=== PATIENT | male | born 1975 | race Caucasian/White ===

== ENCOUNTER → 2019-10-03 12:24 | Outpatient (CLI) | payer BC, SELFPAY ==
--- NOTE | ~2019-10-03 | XR_ITS ---
EXAMINATION: XR knee LT 3V DATE: 10/03/2019 12:45 INDICATION: Left knee pain. Injury. TECHNIQUE: 3 views of left knee were obtained. COMPARISON: None. FINDINGS: Bone alignment is normal. No fracture. There is mild osteoarthritis of lateral and patellof emoral compartments. No knee joint effusion. IMPRESSION: 1. Mild left knee osteoarthritis. Reviewed, dictated and finalized at location A. S BREAKER
== END ==
PROVIDERS: PCP Physician Assistant; Visit Provider Physician Assistant
DX: M25.562 Pain in left knee (principal); M17.12 Unilateral primary osteoarthritis, left knee
CPT/HCPCS: 73562

== ENCOUNTER 2021-04-23 12:49 | Outpatient (CLI) | payer BC, OTHER, SELFPAY ==
--- NOTE | ~2021-04-23 | US_ITS ---
US scrotum doppler DATE: 04/23/2021 13:37 INDICATION: Right epididymitis TECHNIQUE: Real-time and color flow imaging and Doppler analysis of the scrotal contents COMPARISON: None FINDINGS: No testicular mass lesion or torsion is detected. There is asymmetric prominence and heterogeneous echo texture and increased vascularity of the right epididymis, consistent with clinical diagnosis of right epididymitis. Small left hydrocele. No varicoceles are demonstrated. IMPRESSION: Right epididymitis Reviewed, dictated and finalized at Location A. Reviewed, dictated and finalized at location A. IMPRESSION: Right epididymitis
== END 2021-04-23 12:50 | disposition home or self-care (01) ==
PROVIDERS: PCP Family Medicine; Visit Provider Nurse Practitioner Adult Health
DX: N45.1 Epididymitis (principal)
CPT/HCPCS: 76870; 93976

== ENCOUNTER → 2021-07-15 09:34 | Outpatient (CLI) | payer OTHER, SELFPAY ==
[2021-07-15 20:25] LABS: SARS-CoV-2 RNA PCR Positive
== END ==
PROVIDERS: PCP Family Medicine; Visit Provider Nurse Practitioner Family
DX: U07.1 COVID-19 (principal)
CPT/HCPCS: C9803; U0003; U0005

== ENCOUNTER → 2022-03-26 14:03 | Outpatient (CLI) | payer OTHER, SELFPAY ==
--- NOTE | ~2022-03-26 | US_ITS ---
EXAMINATION: US venous doppler LE RT DATE: 03/26/2022 14:40 INDICATION: Right lower limb swelling TECHNIQUE: Youngblood scale images without and with compression and Doppler images of the right lower extre mity veins were obtained. COMPARISON: None FINDINGS: The right common femoral vein, profunda femoral vein, femoral vein, popliteal vein, peronea l trunk, posterior tibial veins, and greater saphenous vein are patent. The calf veins are somewhat d ifficult to image. There is a 3.3 cm Kidd's cyst. IMPRESSION: 1. Patent right lower extremity veins. No evidence of deep venous thrombosis. Reviewed, dictated and finalized at location A.
== END ==
PROVIDERS: PCP Family Medicine
DX: I82.401 Acute embolism and thrombosis of unspecified deep veins of right lower extremity (principal)
CPT/HCPCS: 93971

== ENCOUNTER → 2022-05-19 15:19 | Outpatient (CLI) | payer OTHER, MEDICAID, SELFPAY ==
--- NOTE | ~2022-05-19 | US_ITS ---
EXAMINATION: US venous doppler LE RT DATE: 05/19/2022 15:46 INDICATION: Right lower limb swelling TECHNIQUE: Grayscale ultrasound images without and with compression and Doppler ultrasound images of the right lower extremity veins were obtained. COMPARISON: 03/26/2022 FINDINGS: Noncompressible deep venous necrosis in the distal right popliteal vein as well as within both of the paired right peroneal veins at the calf. The visualized portions of right common femoral vein, profu nda (deep) femoral vein, femoral vein, posterior tibial veins, gastrocnemius vein and greater sapheno us vein outflow are patent. 5.6 x 4.7 x 1.5 cm Kidd's cyst at the right popliteal fossa. IMPRESSION: 1. Right sided skkqg-uzm-hjwr deep venous thrombosis, new since study from 2 months prior in the dis jessika right popliteal vein and paired peroneal veins. Dr. Cox discussed these findings with Dr. Clara marrufo at 4:00 PM. 2. Moderate-sized Kidd cyst at the right popliteal fossa. Reviewed, dictated and finalized at location B. IMPRESSION: 1. Right sided alpxn-xrl-lfac deep venous thrombosis, new since study from 2 m onths prior in the distal right popliteal vein and paired peroneal veins. Dr. Adore cortez discussed these findings with Dr. Camejo at 4:00 PM. 2. Moderate-sized Kidd cyst at the right popliteal fossa.
== END ==
DX: I82.431 Acute embolism and thrombosis of right popliteal vein (principal); I82.451 Acute embolism and thrombosis of right peroneal vein; M71.21 Synovial cyst of popliteal space [Baker], right knee
CPT/HCPCS: 93971

== ENCOUNTER 2022-07-08 13:02 | Outpatient (CLI) | payer OTHER, MEDICAID, SELFPAY ==
--- NOTE | ~2022-07-08 | US_ITS ---
EXAMINATION:US venous doppler LE RT INDICATION:Follow-up deep venous thrombosis TECHNIQUE: Multiple grayscale, color flow and Doppler images of the right lower extremity deep venous systems were obtained and reviewed. COMPARISON:05/19/2022 FINDINGS: The common femoral, superficial femoral and popliteal veins demonstrate normal respiratory variation, augmentation and compressibility. Color flow is also seen within the posterior tibial, pe roneal, greater saphenous and profunda veins. IMPRESSION: 1: No lower extremity deep venous thrombosis. Reviewed, dictated and finalized at location A. NICS MANAGER
== END 2022-07-08 13:03 | disposition home or self-care (01) ==
PROVIDERS: PCP Family Medicine
DX: I82.401 Acute embolism and thrombosis of unspecified deep veins of right lower extremity (principal)
CPT/HCPCS: 93971

== ENCOUNTER 2023-01-30 18:59 | Emergency (ER) | payer OTHER, MEDICAID, SELFPAY ==
[2023-01-30] VITALS (10 sets, daily range): BP systolic 114–178; BP diastolic 59–80; PULSE 61–91; RESP 13–31; TEMP 36.3; O2SAT 97–100
--- NOTE | ~2023-01-30 | CT_ITS ---
CT ANGIOGRAM NECK AND HEAD History: Aneurysm. Technique: Serial spiral axial images through the head and neck were obtained during arterial phase I V injection of 100 cc of Omnipaque 350. 3-D postprocessing and MIP images were then reconstructed on the remote workstation. Dose reduction technique was used on this scan by utilizing automated exposur e control and iterative reconstruction technique. The dose-length product (DLP) was 1238.89 mGy-cm. CTA neck findings: Bilateral vertebral arteries are patent. Bilateral common carotid, internal carot id, and external carotid arteries are patent. No large vessel occlusion. No stenosis or aneurysm. The proximal right internal carotid artery demonstrates 0% stenosis relative to the normal distal artery lumen diameter. The proximal left internal carotid artery demonstrates 0% stenosis relative to the n ormal distal artery lumen diameter. CTA head findings: Distal vertebral arteries, basilar artery, and posterior cerebral arteries are pat ent. Distal internal carotid arteries, middle cerebral arteries, and anterior cerebral arteries are p atent. No large vessel occlusion. No stenosis or aneurysm. 1.4 cm meningioma again notable at the left temporoparietal convexity. Impression: No aneurysm. 1.4 cm meningioma at the left temporoparietal convexity. Reviewed, dictated and finalized at location . Impression: No aneurysm. 1.4 cm meningioma at the left temporoparietal convexity.
--- NOTE | ~2023-01-30 | CT_ITS ---
Non-contrast Head CT History: Altered mental status COMPARISON: 03/24/2014 Technique: Axial non-contrast imaging of the brain was performed. Dose reduction technique was used on this scan by utilizing automated exposure control and iterative reconstruction technique. The dose -length product (DLP) was 756.67 mGy-cm. Findings: There is no evidence of intracranial hemorrhage or acute infarct. There is a 1.5 cm hyperd ense, peripherally calcified mass at the left temporoparietal convexity (axial image 40), consistent with small meningioma. Brain parenchyma appears normal. The ventricles and subarachnoid spaces are n ormal in size. The calvarium appears normal. The visualized paranasal sinuses and mastoid air cells are clear. Impression: No acute abnormality. 1.5 cm left temporoparietal convexity meningioma, as detailed above. Reviewed, dictated and finalized at location . Impression: No acute abnormality. 1.5 cm left temporoparietal convexity meningioma, as detailed above.
--- NOTE | ~2023-01-30 | XR_ITS ---
Clinical Indication: Weakness An lateral views of the chest: Comparison: 03/25/2014 Findings: The lungs are clear, without evidence of focal consolidation or pleural effusion. Cardiome diastinal silhouette is within normal limits. Bones and soft tissues are unremarkable. Impression: Normal chest. Reviewed, dictated and finalized at [facility]. Impression: Normal chest.
--- NOTE | ~2023-01-30 | XR_ITS ---
Portable chest x-ray Comparison: 01/30/2023 Clinical History: Tube placement Findings: Endotracheal tube and NG tube are in satisfactory positions. Probable mild central congest ronna change and mild interstitial edema. Cardiomediastinal silhouette is stable. Bones and soft tissu es are unremarkable. Impression: Support tubes, as above. Central congestive change and probable mild interstitial edema. Reviewed, dictated and finalized at location . Impression: Support tubes, as above. Central congestive change and probable mild interstitial edema.
--- NOTE | 2023-01-30 19:08 | ECG_ITS ---
Measurements Intervals [place] Rate: 87 P: 49 OK: 142 QRS: 50 QRSD: 83 T: 62 QT: 353 QTc: 427 Interpretive Statements SINUS RHYTHM WITH OCCASIONAL SUPRAVENTRICULAR PREMATURE COMPLEXES OTHERWISE NORMAL ECG NO PREVIOUS ECG AVAILABLE FOR COMPARISON Electronically Signed On 01-31-2023 10:38:14 CDT by Shailesh De La Vega M.D.
[2023-01-30 19:29] LABS: Basophils Percent Auto 0.2 % (0.2-1.2); Eosinophils Absolute Auto 0.4 K/mm3 (0-0.3); Eosinophils Percent Auto 3.5 % (0-4.4); Hematocrit 45.7 % (42.0-52.0); Hemoglobin 15.5 g/dL (14.0-18.0); Immature Granulocyte Absolute 0.05 K/mm3 (0.00-0.031); Immature Granulocyte Percent A 0.5 % (0-0.5); Lymphocytes Absolute Auto 2.42 K/mm3 (0.9-3.2); Lymphocytes Percent Auto 23.1 % (18.3-44.2); Mean Corpuscular HGB Conc 33.9 g/dl (32-36); Mean Corpuscular Hemoglobin 30.9 pg (26-34); Mean Platelet Volume 8.8 fl (7.4-10.4); Monocytes Absolute Auto 1.1 K/mm3 (0.1-0.6); Monocytes Percent Auto 10.5 % (2.6-8.5); Neutrophils Absolute Auto 6.5 K/mm3 (1.3-6.7); Neutrophils Percent Auto 62.2 % (45.5-73.1); Platelet Count Result 257 k/mm3 (150-375); Red Blood Count 5.02 M/mm3 (4.6-6.20); Red Cell Distribution Width 13.3 % (11.5-14.5); White Blood Count 10.5 K/mm3 (4.5-10.0)
[2023-01-30 19:41] LABS: Alanine Aminotransferase 38 U/L (6-50); Albumin Level 4.1 g/dL (3.5-5.1); Alkaline Phosphatase 111 U/L (38-126); Anion Gap 8 mmol/L (8-16); Aspartate Amino Transferase 32 U/L (17-59); Bilirubin,Total 0.4 mg/dL (0.2-1.3); Blood Urea Nitrogen 15 mg/dL (9-20); Calcium 8.9 mg/dL (8.4-10.2); Carbon Dioxide 26 mmol/L (22-30); Chloride 103 mmol/L (98-107); Estimated CRCL calculation 93 ml/min; Estimated Glomerular Filt Rate > 60; Glucose 137 mg/dL (65-110); Sodium 137 mmol/L (137-145)
[2023-01-30 20:51] LABS: Basophils Percent Auto 0.3 % (0.2-1.2); Eosinophils Absolute Auto 0.4 K/mm3 (0-0.3); Eosinophils Percent Auto 3.6 % (0-4.4); Hematocrit 45.9 % (42.0-52.0); Hemoglobin 15.8 g/dL (14.0-18.0); Immature Granulocyte Absolute 0.05 K/mm3 (0.00-0.031); Immature Granulocyte Percent A 0.5 % (0-0.5); Lymphocytes Absolute Auto 2.36 K/mm3 (0.9-3.2); Lymphocytes Percent Auto 23.4 % (18.3-44.2); Mean Corpuscular HGB Conc 34.4 g/dl (32-36); Mean Platelet Volume 8.8 fl (7.4-10.4); Monocytes Absolute Auto 1.3 K/mm3 (0.1-0.6); Monocytes Percent Auto 12.4 % (2.6-8.5); Neutrophils Percent Auto 59.8 % (45.5-73.1); Platelet Count Result 270 k/mm3 (150-375); Red Cell Distribution Width 13.2 % (11.5-14.5); White Blood Count 10.1 K/mm3 (4.5-10.0)
[2023-01-30 21:00] LABS: INR 0.9; Lactic Acid Reflex 1.5 mmol/L (0.7-2.0); Prothrombin Time 12.5 Seconds (11.1-14.7)
[2023-01-30 21:01] LABS: Magnesium 2.2 mg/dL (1.6-2.3); Partial Thromboplastin Time 27.3 SECONDS (22.3-36.8); Phosphorus 4.4 mg/dL (2.5-4.5)
[2023-01-30 21:03] LABS: Ethanol < 10 mg/dL (<10)
[2023-01-30] MEDS: SODIUM CHLORIDE 0.9% IV 3,000 ML 999 ML IV CONT (21:05)
[2023-01-30 21:11] LABS: Alanine Aminotransferase 38 U/L (6-50); Albumin Level 4.1 g/dL (3.5-5.1); Alkaline Phosphatase 108 U/L (38-126); Anion Gap 7 mmol/L (8-16); Aspartate Amino Transferase 34 U/L (17-59); Bilirubin,Total 0.5 mg/dL (0.2-1.3); Blood Urea Nitrogen 16 mg/dL (9-20); Carbon Dioxide 28 mmol/L (22-30); Chloride 102 mmol/L (98-107); Creatine Kinase 49 U/L (55-170); Estimated CRCL calculation 93 ml/min; Estimated Glomerular Filt Rate > 60; Glucose 93 mg/dL (65-110); Lipase 35 U/L (23-300); Potassium 4.3 mmol/L (3.4-5.0); Sodium 137 mmol/L (137-145)
[2023-01-30 21:13] LABS: Troponin I < 0.012 ng/mL (0.000-0.034)
[2023-01-30 21:20] LABS: NT Pro B Type Natriuretic Pept < 20 pg/mL (19.9-100)
--- NOTE | 2023-01-30 21:39 | ED.GENADULT ---
HPI - General Adult General Chief complaint: Weakness Stated complaint: weakness since Tuesday Time Seen by Provider: 01/30/23 20:08 History of Present Illness HPI narrative: This is a 47-year-old male presenting ED with chief complaint of altered mental status. The patient self is lethargic and can provide very little information other than he feels stiff everywhere. per the patient's he syncopized at work on Tuesday and was sent home with presumed heat exhaustion. Since then he has only been getting up to use the restroom. His ex- states that he did have several tick bites the week of January. Chronic lymphedema of the R leg. Related Data Home Medications Medication Instructions Recorded Confirmed ibuprofen 800 mg tablet 800 mg PO TID 02/26/22 06/01/22 Allergies Allergy/AdvReac Type Severity Reaction Status Date / Time adhesive tape Allergy Intermediate Itching Verified 06/01/22 15:12 Penicillins Allergy Mild Unknown Verified 06/01/22 15:12 ampicillin Allergy Unknown Unknown Verified 06/01/22 15:12 Sulfa (Sulfonamide Allergy Unknown Unknown Verified 06/01/22 15:12 Antibiotics) [facility] Past Medical History Medical History (Updated 01/31/23 @ 03:31 by Manjinder Vital MD) Body mass index (bmi) 37.0-37.9, adult (05/21/19) Bursitis of knee Chest pain (05/22/22) left-sided chest pain after her history of DVT evaluated in ER 05/22/2022 with no PE and negative cardiac evaluation. Chronic acquired lymphedema Right lower extremity Chronic depression Deep vein thrombosis (DVT) of right lower extremity (~05/19/22) venous Doppler study positive for DVT right lower extremity 2 weeks postop knee surgery. GERD (gastroesophageal reflux disease) Hypersomnia with sleep apnea On Nuvigil Hypertension Lumbar vertebral fracture CHEIKH on CPAP Surgical History Surgical History (Updated 01/31/23 @ 03:13 by Anabela Sy DO) Biceps tendon tear Status post surgical repair on the right H/O inguinal hernia repair X3 History of Achilles tendon repair On the left History of arthroscopy of both knees 2 times a left knee 1 time on the right knee History of repair of right rotator cuff Family History Family History Father Asthma Mother Asthma Family history of cardiovascular disease Family history of kidney disease Grandparent Family history of malignant neoplasm Social History Social History (Updated 01/31/23 @ 03:14 by Anabela Sy DO) Social History: Patient lives at home with his of 23 years and 3rd children ages 10 and 15 years old. The patient has smoked up to a pack of cigarettes per day since he was teenager. 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 He does drink alcohol in moderation on occasion. She he does not use illicit substances. Code status: Full code Surrogate decision maker: Smoking status: Current every day smoker Alcohol intake: current Substance use: never Substance use type: does not use Lack of Transportation: No Lack of Food: Never True Current Housing: I Have Housing Concerned About Future Housing: No Difficulty Paying Gas/Electric Bills: No Difficulty Paying for Meds: No Currently Unemployed: No Education: High School Diploma/GED Difficulty w/ Childcare or Family Care: No Exam Narrative: APPEARANCE: patient is lethargic, he appears unwell Head: atraumatic. EYES: pupils are 2 mm equal and reactive, left eye has an inward gaze at baseline although he does have intact oxygen extraocular eye movements. This is not normal for the patient NOSE: Atraumatic NECK: neck stiffness RESPIRATORY: No increased rate of breathing, clear to auscultation CARDIOVASCULAR: RRR, patient's right leg is swollen and erythematous /warm to touch, is history of DVT at leg it is
[2023-01-30 21:43] LABS: Influenza A QL RT-PCR Negative (Negative); Influenza B QL RT-PCR Negative (Negative); RSV RNA, RT-PCR Negative (Negative); SARS-CoV-2 RNA PCR Negative (Negative)
[2023-01-30] MEDS: cefTRIAXone 2 GM/NS 100 ML 2 GM/100 ML BAG IVPB (21:45)
[2023-01-30 21:51] LABS: Glucose CSF 69 mg/dL (40-70); Total Protein CSF 49 mg/dL (12-60)
[2023-01-30 22:10] LABS: Barbiturate Screen Urine Negative (Negative); Benzodiazepines Screen Urine Negative (Negative)
[2023-01-30 22:11] LABS: Appearance Urine Clear (Clear); Bacteria Urine None Seen /hpf; Bilirubin Urine Negative (Negative); Blood Urine Negative (Negative); Color Urine Dark Yellow (Yellow); Glucose Urine UA Negative (Negative); Ketones Urine Trace mg/dL (Negative); Leukocyte Esterase Ur Trace LEU/UL (Negative); Need Manual Microscopic Reviewed; Nitrate Urine Negative (Negative); Non Pathogenic Casts 0-2; Protein Urine 1+ mg/dL (Negative); Specific Grav Ur 1.026 (1.001-1.035); Squamous Epithelial Cell Urine None seen /hpf (Few); WBC Urine 0-5 /hpf; pH Urine 7.5 (5.0-9.0)
[2023-01-30] MEDS: ACYCLOVIR SODIUM IVPB 800 MG in DEXTROSE 5% IN WATER 250 ML 266 MG IVPB (22:12)
[2023-01-30 22:15] LABS: Add Urine Microscopic? YES
[2023-01-30 22:37] LABS: Appearance CSF Clear (Clear); CSF source CSF; Color CSF Colorless (Colorless)
[2023-01-30 22:39] LABS: Nucleated Cell CSF < 3 /uL (0-5); Red Blood Cell CSF < 2000 (0-2)
[2023-01-30 22:59] LABS: Cannabinoid Screen Urine Negative (Negative); Cocaine Screen Urine Negative (Negative); Methadone Screen Urine Negative (Negative); Opiate Screen Urine Negative (Negative); Phencyclidine Screen Urine Negative (Negative)
[2023-01-30] MEDS: DOXYCYCLINE 100 MG/NS 100 ML 100 MG/100 ML BAG IVPB (23:02)
[2023-01-30 23:20] LABS: Amphetamine Screen Urine Positive (Negative)
[2023-01-30] MEDS: VANCOMYCIN 1,250 MG/NS 250 ML 1,250 MG/250 ML BAG 166.67 MG IVPB (23:29)
[2023-01-31] VITALS (15 sets, daily range): BP systolic 157–228; BP diastolic 92–129; PULSE 67–104; RESP 16–20; TEMP 35.6–36.3; O2SAT 97–100
[2023-01-31] MEDS: VANCOMYCIN 1,250 MG/NS 250 ML 1,250 MG/250 ML BAG 166.67 MG IVPB (00:35)
[2023-01-31 01:36] LABS: Troponin I < 0.012 ng/mL (0.000-0.034)
[2023-01-31] MEDS: FENTANYL 2,500MCG/NS250ML(*CRX 2,500 MCG/250 ML BAG 11.5 MCG IV CONT (01:57)
[2023-01-31 02:21] LABS: Monocytes CSF 30 % (15-45)
[2023-01-31 02:22] LABS: Lymphocytes CSF 70 % (40-80)
[2023-01-31 02:23] LABS: Neutrophils CSF 0 % (0-6)
--- NOTE | 2023-01-31 02:34 | PC.NURSE ---
0150 - 7.[address] Vital, 25 @ lips. 0159 - OG [address] AIDEE Santos 60 @ the lip.
[2023-01-31] MEDS: LORazepam INJ (*CRX) 2 MG/ML VIAL IV PUSH ×2 (02:42→04:25)
[2023-01-31] MEDS: fentaNYL CITRATE INJ (*CRX) 100 MCG/2 ML VIAL IV PUSH (02:43)
--- NOTE | 2023-01-31 02:52 | PM.IMCN ---
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 Status: Acute (3) Tick bite: Qualifiers: Encounter type: initial encounter Site of tick bite: unspecified site Qualified Code(s): W57.XXXA - Bitten or stung by nonvenomous insect and other nonvenomous arthropods, initial encounter Code(s): W57.XXXA - Bitten or stung by nonvenomous insect and other nonvenomous arthropods, initial encounter Status: Acute (4) Encephalitis: Code(s): G04.90 - Encephalitis and encephalomyelitis, unspecified Status: Acute (5) High cerebrospinal fluid red blood cell count: Code(s): R83.8 - Other abnormal findings in cerebrospinal fluid Status: Acute Plan Patient's clinical presentation could be consistent with encephalitis either her brief verses Lyme associated. Patient was started on antibiotic therapy with Rocephin vancomycin and antiviral therapy with acyclovir was started in the ER. The patient also received dexamethasone. Given the potential for possible lines acute process I recommended doxycycline be added. I went and evaluated the patient in the ER. I have recommended consulting case investigator. Bedtime that evaluation the patient's CSF had come back with ER physician report of significant elevated RBCs. CT of the head and neck was obtained. CTA demonstrated no aneurysm or obvious bleed. Patient continued to be altered and there was concern for patient's ability to protect his airway and subsequently was intubated. Since the patient has been intubated and we do not have the ability to perform an MRI on an intubated patient the patient is being transferred to [place] neuro ICU. Labs were reviewed as listed under results. Imaging was reviewed. 70 minutes was spent in discussion with the patient's and ER provider and did evaluation of the patient as well as review of the chart and laboratory findings. Due to a high probability of clinically significant, life threatening deterioration, the patient required my highest level of preparedness to intervene emergently and I personally spent this critical care time directly and personally managing the patient. This critical care time included obtaining a history; examining the patient; pulse oximetry; ordering and review of studies; arranging urgent treatment with development of a management plan; evaluation of patient's response to treatment; frequent reassessment; and discussions with other providers. It was exclusive of separately billable procedures and treating other patients and teaching time. Please see Assessment and Plan section and the rest of the note for further information on patient assessment and treatment. HPI Data of Consult Consult date: 01/31/23 Requesting Physician: Dr. Vital Primary Care Provider: Mohan Camejo MD Consult Narrative Narrative: Nahid Duran is a 47 year old male with a past medical history of essential hypertension, right dlkag-ljn-nrti DVT May 2022 and obstructive sleep apnea who presented to the ER via private vehicle due to change in mental status. The patient's provides the majority of the history. Office visit reports were reviewed were noncontributory to acute illness. The patient's reports that on Tuesday the patient had been at work and passed out. The patient had a history of heat stroke in the past and the patient's coworkers thought that the patient likely had heat stroke. brought him home and gave him fluids. However the patient slept for approximately 18 hours. Then on the night of the the patient had a fever of 101.2. However he was afebrile shortly thereafter that. He did take some antipyretics. Ever since he returned home me is been complaining of neck stiffness and generalized weakness. He he has been fat
[2023-01-31] MEDS: MIDAZOLAM 100MG/NS 100ML(*CRX) 100 MG/100 ML BAG IV CONT (02:55)
[2023-01-31] MEDS: MIDAZOLAM HCL (*CRX) 2 MG/2 ML VIAL IV PUSH ×2 (02:58→04:20)
[2023-01-31] MEDS: HYDROmorphone HCL INJ (*CRX) 1 MG/ML SYR IV PUSH (04:25)
[2023-02-03 06:28] LABS: Lyme Disease Ab (IgM), Blot Negative (Negative); Lyme Disease Ab(IgG), Blot Negative (Negative)
[2023-02-03 07:53] LABS: Cryptococcus Antigen Not Detected (Not Detected); Cryptococcus Specimen Source CSF; Herpes Simplex Type 1 DNA PCR Not Detected (Not Detected); Herpes Simplex Type 2 DNA PCR Not Detected (Not Detected)
[2023-02-03 16:33] LABS: Epstein Barr Virus DNA PCR Not Detected (Not Detected); Source Epstein Barr Virus CSF
[2023-02-17 19:14] LABS: Albumin, Serum 3.8 g/dL (3.6-5.1); IgG Index, CSF 0.51 (<0.70); IgG, CSF 3.7 mg/dL (0.8-7.7); Immunoglobulin G, Serum 1070 mg/dL (600-1640); Myelin Basic Protein, CSF <2.0 mcg/L (<=4.0); Oligoclonal Bands (IgG), CSF Absent (Absent); Synthesis Rate IgG, CSF -1.7 mg/24 h (-9.9-3.3)
== END 2023-01-31 04:45 | disposition short-term general hospital (02) ==
PROVIDERS: Emergency Provider Emergency Medicine; PCP Family Medicine
DX: R29.1 Meningismus (principal); G04.90 Encephalitis and encephalomyelitis, unspecified; T14.8XXA Other injury of unspecified body region, initial encounter; R41.82 Altered mental status, unspecified; R83.8 Other abnormal findings in cerebrospinal fluid; Z20.822 Contact with and (suspected) exposure to COVID-19; I10 Essential (primary) hypertension; I89.0 Lymphedema, not elsewhere classified; G47.33 Obstructive sleep apnea (adult) (pediatric); G47.10 Hypersomnia, unspecified; K21.9 Gastro-esophageal reflux disease without esophagitis; F17.210 Nicotine dependence, cigarettes, uncomplicated; Z86.718 Personal history of other venous thrombosis and embolism; Z79.01 Long term (current) use of anticoagulants; I49.1 Atrial premature depolarization; D32.0 Benign neoplasm of cerebral meninges; W57.XXXA Bitten or stung by nonvenomous insect and other nonvenomous arthropods, initial encounter
CPT/HCPCS: 31500; 36415; 51702; 62270; 70450; 70496; 70498; 71046; 80053; 80307; 81001; 82040; 82042; 82550; 82784; 82945; 83605; 83690; 83735; 83873; 83880; 83916; 84100; 84157; 84443; 84484; 85025; 85610; 85730; 86403; 86592; 86617; 87015; 87040; 87070; 87102; 87116; 87147; 87181; 87186; 87205; 87206; 87255; 87529; 87637; 87798; 89051; 93005; 96361; 96365; 96367; 96368; 96375; 96376; 99291; J0131; J0133; J0696; J1100; J1170; J2060; J2250; J3010; J3370; J7030; J7060; Q9967

== ENCOUNTER 2023-02-03 19:19 | Emergency (ER) | payer OTHER, MEDICAID, SELFPAY ==
[2023-02-03] VITALS (10 sets, daily range): BP systolic 134–180; BP diastolic 74–101; PULSE 70–90; RESP 13–23; TEMP 36.2; O2SAT 95–100
--- NOTE | ~2023-02-03 | XR_ITS ---
EXAMINATION: XR chest 2V Exam Date/Time: 02/03/2023 19:55 CDT HISTORY: weakness ASIA BP RECENT LUMBAR PUNCTURE Comparison: 01/30/2023. RESULT: Lines, tubes, and devices: None. Lungs and pleura: Mild diffuse reticular opacities. Cardiomediastinal silhouette: Stable. Other: No acute osseous or upper abdominal finding. IMPRESSION: Pulmonary opacities may represent mild interstitial edema and/or respiratory bronchiolitis. Reviewed, dictated and finalized at location K. IMPRESSION: Pulmonary opacities may represent mild interstitial edema and/or respiratory br onchiolitis.
--- NOTE | ~2023-02-03 | CT_ITS ---
EXAMINATION: CTA brain carotid DATE: 02/03/2023 21:05 INDICATION: posterior right sided neck pain TECHNIQUE: Computed tomographic angiography (CTA) of the head was performed without and with 100 mL O mnipaque-350 intravenous contrast. CTA of the neck was performed with intravenous contrast. Automated exposure control and iterative reconstruction technique were employed. The dose-length product was 1 993.38 mGy-cm. Maximum intensity projection and volume rendered 3D-reconstructions were created by meaghan technologist on a separate workstation. COMPARISON: CT brain and CTA brain carotid 01/30/2023. FINDINGS: CT BRAIN: No acute large vessel infarct, intracranial hemorrhage, mass, or hydrocephalus. Left temporoparietal meningioma. CTA HEAD: No large vessel occlusion, aneurysm, high flow vascular malformation, nidus or extravasation. CTA NECK: Aortic arch and proximal great vessels: Normal arch anatomy. No significant dilation or calcification . Right common carotid, carotid bifurcation, and internal carotid artery: No plaque.There is 0% stenosi s of the proximal right internal carotid artery relative to normal distal artery lumen diameter (NASC ET criteria). Left common carotid, carotid bifurcation, and internal carotid artery: Mild calcified plaque at the b ifurcation.There is 0% stenosis of the proximal left internal carotid artery relative to normal dista l artery lumen diameter (NASCET criteria). Vertebral arteries: Short segment moderate narrowing at the origin of the left vertebral artery. The right vertebral artery is slightly dominant. Other findings: Scattered reticular and reticulonodular opacities in the lungs. Dependent atelectasis . 11 mm right thyroid nodule which requires no additional workup at this time. Moderate degenerative change at the atlantoaxial joint. Multilevel degenerative disc disease in the cervical spine, moderat e at C4-5. IMPRESSION: No acute intracranial process. No large vessel infarct or severe stenosis of the carotid and vertebral arteries. Pulmonary opacities consistent with respiratory bronchiolitis. Reviewed, dictated and finalized at location K. IMPRESSION: No acute intracranial process. No large vessel infarct or severe stenosis of the carotid and vertebral arterie s. Pulmonary opacities consistent with respiratory bronchiolitis.
--- NOTE | 2023-02-03 19:37 | ECG_ITS ---
Measurements Intervals [place] Rate: 78 P: 11 GA: 140 QRS: 52 QRSD: 94 T: 60 QT: 373 QTc: 425 Interpretive Statements SINUS RHYTHM NORMAL ELECTROCARDIOGRAM COMPARED TO ECG 01/30/2023 19:17:48 NO SIGNIFICANT CHANGES Electronically Signed On 02-04-2023 17:02:49 CDT by Kumar Angeles M.D.
[2023-02-03 19:50] LABS: Basophils Absolute Auto 0.1 K/mm3 (0.0-0.1); Basophils Percent Auto 0.6 % (0.2-1.2); Eosinophils Absolute Auto 0.5 K/mm3 (0-0.3); Eosinophils Percent Auto 4.3 % (0-4.4); Hematocrit 42.3 % (42.0-52.0); Hemoglobin 14.5 g/dL (14.0-18.0); Immature Granulocyte Absolute 0.18 K/mm3 (0.00-0.031); Immature Granulocyte Percent A 1.5 % (0-0.5); Lymphocytes Absolute Auto 3.36 K/mm3 (0.9-3.2); Lymphocytes Percent Auto 28.5 % (18.3-44.2); Mean Corpuscular HGB Conc 34.3 g/dl (32-36); Mean Corpuscular Hemoglobin 30.5 pg (26-34); Mean Corpuscular Volume 89.1 fl (80-100); Mean Platelet Volume 8.9 fl (7.4-10.4); Monocytes Absolute Auto 1.1 K/mm3 (0.1-0.6); Monocytes Percent Auto 9.3 % (2.6-8.5); Neutrophils Absolute Auto 6.6 K/mm3 (1.3-6.7); Neutrophils Percent Auto 55.8 % (45.5-73.1); Platelet Count Result 326 k/mm3 (150-375); Red Blood Count 4.75 M/mm3 (4.6-6.20); Red Cell Distribution Width 12.6 % (11.5-14.5); White Blood Count 11.8 K/mm3 (4.5-10.0)
--- NOTE | 2023-02-03 19:52 | ED.GENADULT ---
HPI - General Adult General Chief complaint: Unspecified Stated complaint: headache, neck stiffness Time Seen by Provider: 02/03/23 19:41 History of Present Illness HPI narrative: 47-year-old male presented to the emergency department for evaluation of right-sided neck pain. Patient reports he was having some full body aches and headache on Tuesday. Patient was evaluated in the ED and ultimately transferred to [facility] because [facility] did not have the capability to do an MRI on an intubated patient. Patient did get intubated and then family reports he was discharged with no specific diagnosis. Patient is on antibiotics for cellulitis of the right lower extremity. Patient states that he began having worsening neck pain today. Patient denies any associated numbness or weakness. Patient does report exertional shortness of breath. Related Data Home Medications Medication Instructions Recorded Confirmed ibuprofen 800 mg tablet 800 mg PO TID 02/26/22 06/01/22 Allergies Allergy/AdvReac Type Severity Reaction Status Date / Time adhesive tape Allergy Intermediate Itching Verified 02/03/23 19:27 Penicillins Allergy Mild Unknown Verified 02/03/23 19:27 ampicillin Allergy Unknown Unknown Verified 02/03/23 19:27 Sulfa (Sulfonamide Allergy Unknown Unknown Verified 02/03/23 19:27 Antibiotics) Review of Systems Review of Systems: All systems reviewed & are unremarkable except as noted in HPI and below PMFSH Past Medical History Medical History (Updated 02/04/23 @ 00:01 by Federico Graham) Body mass index (bmi) 37.0-37.9, adult (05/21/19) Bursitis of knee Chest pain (05/22/22) left-sided chest pain after her history of DVT evaluated in ER 05/22/2022 with no PE and negative cardiac evaluation. Chronic acquired lymphedema Right lower extremity Chronic depression Deep vein thrombosis (DVT) of right lower extremity (~05/19/22) venous Doppler study positive for DVT right lower extremity 2 weeks postop knee surgery. GERD (gastroesophageal reflux disease) Hypersomnia with sleep apnea On Nuvigil Hypertension Lumbar vertebral fracture CHEIKH on CPAP Surgical History Surgical History (Updated 01/31/23 @ 03:13 by Anabela Sy DO) Biceps tendon tear Status post surgical repair on the right H/O inguinal hernia repair X3 History of Achilles tendon repair On the left History of arthroscopy of both knees 2 times a left knee 1 time on the right knee History of repair of right rotator cuff Family History Family History Father Asthma Mother Asthma Family history of cardiovascular disease Family history of kidney disease Grandparent Family history of malignant neoplasm Social History Social History (Updated 01/31/23 @ 03:14 by Anabela Sy DO) Social History: Patient lives at home with his of 23 years and 3rd children ages 10 and 15 years old. The patient has smoked up to a pack of cigarettes per day since he was teenager. 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 He does drink alcohol in moderation on occasion. She he does not use illicit substances. Code status: Full code Surrogate decision maker: Smoking status: Current every day smoker Alcohol intake: current Substance use: never Substance use type: does not use Lack of Transportation: No Lack of Food: Never True Current Housing: I Have Housing Concerned About Future Housing: No Difficulty Paying Gas/Electric Bills: No Difficulty Paying for Meds: No Currently Unemployed: No Education: High School Diploma/GED Difficulty w/ Childcare or Family Care: No Exam Narrative: APPEARANCE: Well appearing, no pain, no distress, well-nourished. HEAD: normocephalic, atraumatic. EYES: PERRLA/EOMI, conjunctivae clear. NOSE: Normal no drainage NECK: R
--- NOTE | 2023-02-03 19:59 | PC.NURSE ---
Pt to CT scan via stretcher at this time.
[2023-02-03] MEDS: HYDROmorphone HCL INJ (*CRX) 1 MG/ML SYR IV PUSH (20:08)
[2023-02-03] MEDS: ONDANSETRON INJ 4 MG/2 ML VIAL IV PUSH ×2 (20:14→22:20)
[2023-02-03] MEDS: CYCLOBENZAPRINE HCL 10 MG TABLET PO ×2 (20:22→22:19)
[2023-02-03 20:26] LABS: Appearance Urine Clear (Clear); Bilirubin Urine Negative (Negative); Blood Urine Negative (Negative); Color Urine Yellow (Yellow); Glucose Urine UA Negative (Negative); Ketones Urine Negative (Negative); Leukocyte Esterase Ur Negative LEU/UL (Negative); Nitrate Urine Negative (Negative); Protein Urine Negative (Negative); Specific Grav Ur 1.015 (1.001-1.035); Urobilinogen Urine 0.2 mg/dL (<2.0)
[2023-02-03 20:32] LABS: Add Urine Microscopic? NO
[2023-02-03 20:41] LABS: Alanine Aminotransferase 70 U/L (6-50); Albumin Level 3.9 g/dL (3.5-5.1); Alkaline Phosphatase 128 U/L (38-126); Anion Gap 7 mmol/L (8-16); Aspartate Amino Transferase 36 U/L (17-59); Bilirubin,Total 0.3 mg/dL (0.2-1.3); Blood Urea Nitrogen 19 mg/dL (9-20); Calcium 8.9 mg/dL (8.4-10.2); Carbon Dioxide 27 mmol/L (22-30); Chloride 103 mmol/L (98-107); Estimated CRCL calculation 113 ml/min; Estimated Glomerular Filt Rate > 60; Glucose 129 mg/dL (65-110); Sodium 137 mmol/L (137-145)
[2023-02-03] MEDS: KETOROLAC 15 MG/ML VIAL (*BKC) IV PUSH (22:20)
== END 2023-02-03 22:29 | disposition home or self-care (01) ==
PROVIDERS: Emergency Provider Emergency Medicine; PCP Family Medicine
DX: M54.2 Cervicalgia (principal); L03.115 Cellulitis of right lower limb; I10 Essential (primary) hypertension; I89.0 Lymphedema, not elsewhere classified; K21.9 Gastro-esophageal reflux disease without esophagitis; G47.10 Hypersomnia, unspecified; G47.33 Obstructive sleep apnea (adult) (pediatric); Z86.718 Personal history of other venous thrombosis and embolism; F17.210 Nicotine dependence, cigarettes, uncomplicated; Z79.01 Long term (current) use of anticoagulants
CPT/HCPCS: 36415; 70496; 70498; 71046; 80053; 81003; 85025; 93005; 96374; 96375; 96376; 99284; A9270; J1170; J1885; J2405; Q9967

== ENCOUNTER 2023-05-18 06:53 | Outpatient (CLI) | payer OTHER, MEDICAID, SELFPAY ==
--- NOTE | ~2023-05-18 | CT_ITS ---
Clinical Indication: Dyspnea on exertion CT Scan of the Chest with Contrast: Technique: Contiguous sections were acquired throughout the chest after intravenous administration of 100 cc of Omnipaque 350. Dose reduction technique was used on this scan by utilizing automated expos ure control and iterative reconstruction technique. The dose-length product (DLP) was 731.02 mGy-cm. Findings: There is no evidence of any significant mediastinal, hilar or axillary lymphadenopathy. There is no f illing defect in the pulmonary arterial tree to suggest pulmonary embolus. There is no evidence of ao rtic dissection or aneurysm. There is no evidence of pleural or pericardial effusion. The lungs are clear. No pulmonary nodules or infiltrates are noted. Images through the upper abdomen reveal no abnormalities. Impression: No evidence of pulmonary embolus, aortic dissection, or aortic aneurysm. Clear lungs. Reviewed, dictated and finalized at [facility]. Impression: No evidence of pulmonary embolus, aortic dissection, or aortic aneurysm. Clear lungs.
[2023-05-18 07:28] LABS: Estimated Glomerular Filt Rate > 60
== END 2023-05-18 06:54 | disposition home or self-care (01) ==
LOC: ANHIMG 06:56
PROVIDERS: PCP Family Medicine; Visit Provider Internal Medicine Cardiovascular Disease
DX: R06.09 Other forms of dyspnea (principal)
CPT/HCPCS: 71275; Q9967

== ENCOUNTER → 2023-06-27 11:32 | Outpatient (CLI) | payer OTHER, MEDICAID, SELFPAY ==
--- NOTE | ~2023-06-27 | XR_ITS ---
EXAMINATION: XR ankle LT min 3V DATE: 06/27/2023 11:51 INDICATION: Achilles tendinitis, left leg. TECHNIQUE: 4 views of left ankle were obtained. COMPARISON: None. FINDINGS: Bone alignment is normal. No fracture. There is mild osteoarthritis of talonavicular joint. There are enthesophytes at the posterior and plantar aspects of calcaneal tuberosity. There are dyst rophic calcifications in the area of Achilles tendon. IMPRESSION: 1. Dystrophic calcifications in the area of Achilles tendon. Reviewed, dictated and finalized at location E. ET DRILLER
== END ==
PROVIDERS: PCP Family Medicine; Visit Provider Family Medicine
DX: M76.62 Achilles tendinitis, left leg (principal); M65.872 Other synovitis and tenosynovitis, left ankle and foot
CPT/HCPCS: 73610

== ENCOUNTER 2023-07-14 13:32 | Outpatient (CLI) | payer OTHER, MEDICAID, SELFPAY ==
--- NOTE | ~2023-07-14 | US_ITS ---
EXAMINATION:US venous doppler LE RT INDICATION:Swelling and pain of the right lower extremity TECHNIQUE: Multiple grayscale, color flow and Doppler images of the right lower extremity deep venous systems were obtained and reviewed. COMPARISON:07/08/2022 FINDINGS: The common femoral, superficial femoral and popliteal veins demonstrate normal respiratory variation, augmentation and compressibility. Color flow is also seen within the posterior tibial, pe roneal veins. There is been surgical ablation of the greater saphenous vein. Edema is noted in the so ft tissues of the proximal thigh to the toes. IMPRESSION: 1: No lower extremity deep venous thrombosis. Reviewed, dictated and finalized at location L. FLATBED DRIVER
== END 2023-07-14 13:33 | disposition home or self-care (01) ==
PROVIDERS: PCP Family Medicine; Visit Provider Internal Medicine Cardiovascular Disease
DX: I83.11 Varicose veins of right lower extremity with inflammation (principal)
CPT/HCPCS: 93971

== ENCOUNTER 2024-02-07 12:46 | Outpatient (CLI) | payer OTHER, SELFPAY ==
[2024-02-07 13:24] LABS: Basophils Percent Auto 0.4 % (0.2-1.2); Eosinophils Absolute Auto 0.6 K/mm3 (0-0.3); Eosinophils Percent Auto 5.3 % (0-4.4); Hematocrit 41.4 % (42.0-52.0); Hemoglobin 14.1 g/dL (14.0-18.0); Immature Granulocyte Absolute 0.06 K/mm3 (0.00-0.031); Immature Granulocyte Percent A 0.6 % (0-0.5); Lymphocytes Absolute Auto 3.21 K/mm3 (0.9-3.2); Lymphocytes Percent Auto 29.5 % (18.3-44.2); Mean Corpuscular HGB Conc 34.1 g/dl (32-36); Mean Corpuscular Hemoglobin 30.5 pg (26-34); Mean Corpuscular Volume 89.6 fl (80-100); Mean Platelet Volume 8.9 fl (7.4-10.4); Monocytes Absolute Auto 1.1 K/mm3 (0.1-0.6); Monocytes Percent Auto 10.1 % (2.6-8.5); Neutrophils Absolute Auto 5.9 K/mm3 (1.3-6.7); Neutrophils Percent Auto 54.1 % (45.5-73.1); Platelet Count Result 299 k/mm3 (150-375); Red Blood Count 4.62 M/mm3 (4.6-6.20); Red Cell Distribution Width 13.3 % (11.5-14.5); White Blood Count 10.9 K/mm3 (4.5-10.0)
[2024-02-07 13:56] LABS: Erythrocyte Sedimentation Rate 18 mm/hr (0-20)
[2024-02-07 14:08] LABS: Anion Gap 5 mmol/L (4-12); Blood Urea Nitrogen 18 mg/dL (9-20); Calcium 8.9 mg/dL (8.4-10.2); Carbon Dioxide 27 mmol/L (22-30); Chloride 106 mmol/L (98-107); Estimated Glomerular Filt Rate > 60; Glucose 97 mg/dL (65-110); Potassium 4.2 mmol/L (3.4-5.0); Sodium 138 mmol/L (137-145)
== END 2024-02-07 12:47 | disposition home or self-care (01) ==
LOC: ANHLAB 12:48
PROVIDERS: PCP Family Medicine; Visit Provider Family Medicine
DX: L03.115 Cellulitis of right lower limb (principal); M79.89 Other specified soft tissue disorders; M79.602 Pain in left arm
CPT/HCPCS: 36415; 80048; 85025; 85652

== ENCOUNTER 2024-02-08 16:18 | Outpatient (CLI) | payer OTHER, SELFPAY ==
[2024-02-08 16:59] LABS: D Dimer 1.01 ug/mL (<0.48)
== END 2024-02-08 16:19 | disposition home or self-care (01) ==
PROVIDERS: PCP Family Medicine; Visit Provider Family Medicine
DX: M79.89 Other specified soft tissue disorders (principal); M79.602 Pain in left arm
CPT/HCPCS: 36415; 85380

== ENCOUNTER 2025-02-12 11:43 | Outpatient (CLI) | payer OTHER, SELFPAY ==
--- NOTE | ~2025-02-12 | XR_ITS ---
Right Shoulder Technique: AP and axillary views were obtained. Clinical History: Pain Findings: No fracture or dislocation is seen. Osseous alignment is anatomic. The glenohumeral joint i s intact. There is mild to moderate AC joint degenerative change. Soft tissues are unremarkable. Impression: Mild to moderate AC joint degenerative change. Reviewed, dictated and finalized at location . Impression: Mild to moderate AC joint degenerative change.
--- NOTE | ~2025-02-12 | CT_ITS ---
CT Scan of the Chest without Contrast: Clinical Indication: Dyspnea Technique: Contiguous sections were acquired throughout the chest without intravenous contrast. Dose reduction technique was used on this scan by utilizing automated exposure control and iterative recon struction technique. The dose-length product (DLP) was 694.80 mGy-cm. COMPARISON: 05/18/2023 Findings: There is no evidence of any significant mediastinal, hilar or axillary lymphadenopathy. The mediastin al soft tissues appear normal. There is no evidence of pleural or pericardial effusion. The lungs are clear. No pulmonary nodules or infiltrates are noted. Images through the upper abdomen reveal no abnormalities. Impression: No significant abnormalities seen. Reviewed, dictated and finalized at location . Impression: No significant abnormalities seen.
--- OUTSIDE RECORDS SUMMARY | 2025-02-12 11:50 | XMS_ITS | Encounter Summary ---
Author Organization [facility] Health Address [address] [place] [address] Care Team Providers Care Natural Gas Shothole Driller Name Role Phone Mohan Camejo MD Primary Care Provider [phone] Reason for Visit * Reason Onset Date Comments Returned Call 11/14/2018 Encounter Details Date Type Department Care Team (Late st Contact Info) Description 11/14/2018 Telephone [facility] [address] [place] [address] Reena Silva MD [address] [facility] [address] [place] [id number] Returned Call Social History Tobacco Use Types Packs/Day Years Used Date Smoking Tobacco: Every Day Cigarettes 1 20 Smokeless Tobacco: Former Alcohol Use Standard Drinks/Week Comments Yes 1 (1 standard drink = 0.6 oz pur e alcohol) rarely Sex and Gender Information Value Date Recorded Sex Assigned at Not on file Legal Sex 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 See result note for details. Reena Silva MD [facility] Dermatology Resident - PGY-4 * Telephone Encounter - Jody Rhonda - 11/14/2018 10:36 AM CDT Pt returning Dr. Reagan call regarding results. Pt states he sometimes doesn't have service where he is at but will try his best to answer. documented in this encounter Plan of Treatment Upcoming Encounters Date Type Department Care Team (Late st Contact Info) Description 03/05/2025 2:30 PM CDT Office Visit [facility] - Dermatology [address] [place] [address], [facility] [place] [id number] Alejandra Jose PA [address] [place] [address] [address] [place] [address] documented as of this encounter Visit Diagnoses Not on filedocumented in this encounter Care Teams Natural Gas Shothole Driller Relationship Specialty Start Date End Date Mohan Camejo MD PCP - General 11/03/18 documented as of this encounter
--- OUTSIDE RECORDS SUMMARY | 2025-02-12 11:50 | XMS_ITS | Referral Summary ---
Author Organization [facility] Address [address] [place] [address] Care Team Providers Care Auto Vinyl Top Installer Name Role Phone Mohan Camejo MD Primary Care Provider [phone] Arash Ford MD Unavailable [phone] Allergies Active Allergy Reactions Criticality Noted Date Comments Ampicillin Itching Low 09/13/2012 Sulfa (Sulfonamide Antibiotics) Rash,Itching Medium Medications omeprazole (PriLOSEC) 40 mg capsule 03/02/2022 Active lisinopriL (PRINIVIL,ZESTR IL) 40 mg tablet Take 1 tablet (40 mg total) by mouth daily 30 tablet 11 08/17/2023 Active NIFEdipine (NIFEdipine CC) 60 mg 24 hr tablet Take 1 tablet (60 mg total) by mouth nightly 30 tablet 11 08/17/[address] (CYMBALTA) 60 mg capsule Take 1 capsule (60 mg total) by mouth daily Active meloxicam (MOBIC) 15 mg tablet Take 1 tablet (15 mg total) by mouth daily Active Active Problems Problem Noted Date Diagnosed Date Pain of lower extremity 08/17/2023 CALVILLO (dyspnea on exertion) 03/03/2023 Cellulitis of right lower extremity without foot 02/02/2023 Hypertension 02/02/2023 Venous insufficiency 05/19/2022 Assessment & Plan (06/21/2022 9:49 PM PROJ ENGINEER): Mild lower extremity superficial Venous insufficiency. Continue venous knee-high compression therapy and pneumatic compression. Edema, legs, hereditary 05/19/2022 Assessment & Plan (05/19/2022 11:11 AM CDT): Impression: Patient has significant right lower extremity edema that has been present for approximately 5 years and has been worsening. Patient has compression stockings and lymphedema wrap however, he is unable to utilize the stockings or the wraps due to the swelling of his leg. Patient does have compressions pumps provided by [employer] however, he is loosely compliant with using the pumps. No history of DVT. He recently underwent knee surgery 2 weeks ago. Plan: Patient was seen and evaluated with Dr. Gui Ford. Recommend compression therapy to include Tubigrip and Zac bandage to his right lower extremity. Highly recommend patient to utilize his compression pumps daily and leg elevation for edema control. We will obtain a right lower extremity venous reflux and a CT abdomen and pelvis with venogram for further evaluation of venous obstruction. Patient to follow-up in 2 weeks to review results. Primary hypertension 05/19/2022 Assessment & Plan (05/19/2022 11:04 AM CDT): Impression: Chronic hypertension, controlled medications. Blood pressure stable. Plan: Continue blood pressure management as per primary care provider. Chronic edema 05/19/2022 Assessment & Plan (06/21/2022 9:49 PM PROJ ENGINEER): Lymphedema right lower extremity. No evidence of outflow venous obstruction on CT scan. Recommended resuming pneumatic compression pumps in addition to daily compression regimen. Assessment & Plan (05/19/2022 11:12 AM CDT): Impression: Patient has chronic edema to his right lower extremity for the past 5 years that is worsening over the last few months. Plan: Recommend compression therapy to include Tubigrip and Zac bandage. Highly encourage patient to utilize compression pumps and leg elevation for edema control. Basal cell carcinoma 12/13/2018 Lentigines 12/13/2018 Multiple benign nevi 12/13/2018 Seborrheic keratoses 12/13/2018 Varicose veins of right lower extremity 12/14/19 19 Resolved Problems Problem Noted Date Diagnosed Date Resolved Date Altered mental status 01/31/20232022 Immunizations Immunization Administration Dates Next Due Td, carlos 04/25/1991 Social History Tobacco Use Types Packs/Day Years Used Date Smoking Tobacco: Every Day Cigarettes Tobacco Cessation:Ready to Q uit: No; Counseling Given: Yes Personal Safety Answer Date Recorded Have you ever been in or are you currently in a harmful physical or emotional relationship or is someone making you feel afraid or unsafe? Denies 09/23/2023 Sex and Gender Information Value Date Recorded Sex Assigned at Not on file Legal Sex Male 7:04 PM PROJ ENGINEER Gender Identity Not on file Sexual Orientation Not on file Last Filed Vital Signs Vital Sign Reading Time Taken Comments Blood Pressure 153/66 09/23/2023 12:25 PM PROJ ENGINEER Pulse 68 09/23/2023 12:25 PM PROJ ENGINEER Temperature 37.2 C (98.9 F) 09/23/2023 7:06 AM PROJ ENGINEER Respiratory Rate 18 09/23/2023 7:06 AM PROJ ENGINEER Oxygen Saturation 98% 09/23/2023 12:25 PM PROJ ENGINEER Inhaled Oxygen Concentration - - Weight 119.7 kg (264 lb) 09/23/2023 7:06 AM PROJ ENGINEER Height 175.3 cm (5' 9) 09/23/2023 7:06 AM PROJ ENGINEER Body Mass Index 38.99 09/23/2023 7:06 AM PROJ ENGINEER Plan of Treatment Not on file Medical Devices Implanted Type Area Formulation Chemist Device Identifier Shelf Expiration Date Model / Serial / Lot [employer] Vascade Mvp 6-12fr Venous Closure [id number] - [id number] Implanted:Qty : 1 on 09/23/2023 by Crispin Sifuentes MD at [facility] Collagen Right: Femoral Vein [employer] 06/08/2025 [id number] / / [id number] [employer] Vascade Mvp 6-12fr Venous Closure [id number] - [id number] Implanted:Qty : 1 on 09/23/2023 by Crispin Sifuentes MD at [facility] Collagen Left: Femoral Vein [employer] 06/08/2025 [id number] / / [id number] Insurance [facility] CHOICE PLUS [facility] UHC CHOICE PLUS [facility] CHOICE PLUS Advance Directives For more information, please contact: [phone] * Full Code (Latest Code Status on File) Date Activated Date Inactivated Comments 01/31/2023 5:27 AM 02/02/2023 6:17 PM Care Teams Auto Vinyl Top Installer Relationship Specialty Start Date End Date Mohan Camejo MD [address] [address] PCP - General Family Medicine 05/18/22 Arash Ford MD [address] [address] [place] [address] Surgeon Vascular Surgery 06/08/22
--- OUTSIDE RECORDS SUMMARY | 2025-02-12 11:50 | XMS_ITS | Data Portability ---
Author Organization [facility] Brazen Careerist, [facility] Address [address] [address] Assessment Encounter Date Assessment Date Assessment LastModified by Organization Details LastModified Time 03/01/2022 03/01/2022 Based on today's clinical evaluation it appears that the patient would be a good candidate for MME repair with Dr. Munroe. Recommend patient follow up in his office for final surgical decision to be made by Dr. Munroe. Will send ultrasound images of the right knee to Dr. Munroe's office for review. Patient was given information regarding same. All questions answered. Return to clinic for worsening symptoms. Greater than 45 minutes was spent with the patient in direct evaluation and subsequent care planning. [email or web address] Not available 03/02/2022 08:38:20 Plan of Treatment Reminders Order Date Submit Date Provider Last Modified By Organization Details Last Modified Time Details Appointments None recorded. Lab None recorded. Referral None recorded. Procedures None recorded. Surgeries None recorded. Imaging XR, shoulder - rm 14, please put images on disc for patient 2018 019 [email or web address] Not available 9 14:30:59 MR, arthrogram , shoulder - labrum tear [address] [facility] [address] [facility] [address], [place], [address], 9 10:45:36 Medication Orders None recorded. Patient TargetsNo targets recorded. Patient InstructionsNo instructions recorded. Reason for Referral None Reported. Results Created Date Observation Date Name Description Value Unit Range Abnormal Flag Note LastModifiedBy Organization Detail LastModifiedTime 12/16/19 19 12/13/2018 MR, flako segura No observ ation record ed. [email or web address] [facility] [address] [facility] [address], [place], [address], 12/15/2018 17:35:45 02/26/20 22 02/13/2022 MRI, knee, w/o contr ast No observ ation record ed. BARCODE Not Available 2021 16:13:26 Result Notes None recorded. Problems No Known Problems Procedures Surgical History Date Name Laterality Status Provider Name and Address Organization Details Recorded Time 2 Generic Procedure completed Maria Fernanda [facility], [facility] 03/02/2022 08:35:11 1 repair of tendo achilles completed Adar ITkang Veloz [facility] 12/13/2018 11:16:13 9 [facility] 12/13/2018 11:15:59 Imaging Results None recorded. Procedure Notes None recorded. Medical Equipment None Reported. Allergies Allergen ID Allergen Name Allergen Category Reaction Reaction Severity Criticality Documentation Date Start Date Code Code System Note Provider Name and Address Organization Details Recorded Time 05860 Substance with sulfonami de structure and antibacte rial mechanism of action (substanc e) medicatio n Not available Not available Not available 12/13/2018 48698 8003 SNOMED [facility] 9 11:13:31 63448 ampicilli n medicatio n Not available Not available Not available 12/13/2018 733 RxNorm Kayceegraysonkatelynn [facility] 9 11:13:38 Medications Name Sig Start Date Stop Date Status Note LastModified by Organization Details LastModified Time amoxicillin 500 mg capsule active Not Available Not Available Not Available clindamycin HCl 300 mg capsule active Not Available Not Available Not Available meloxicam 15 mg tablet TAKE 1 TABLET BY MOUTH ONCE DAILY active Not Available Not Available No t Available acetaminophe n 300 mg-codeine 30 mg tablet active Not Available Not Available Not Available ciprofloxaci n 500 mg tablet TAKE 1 TABLET BY MOUTH TWICE DAILY active Not Available Not Available No t Available omeprazole 40 mg capsule,alysia yed release TAKE 1 CAPSULE BY MOUTH ONCE DAILY . APPOINTMENT REQUIRED FOR FUTURE REFILLS OR CAN BUY OTC active Not Available Not Available Not Available hydrocodone 7.5 mg-acetamino phen 325 mg tablet active Not Available Not Available Not Available methylphenid ate ER 20 mg tablet,exten ded release active Not Available Not Available Not Available ibuprofen 600 mg tablet active Not Available Not Available Not Available duloxetine 60 mg capsule,alysia yed release active Not Available Not Available Not Available sildenafil (pulmonary hypertension ) 20 mg tablet TAKE 1 TO 5 TABLETS BY MOUTH ONCE DAILY NEEDED active Not Available Not Available No t Available omeprazole 20 mg tablet,delay ed release Take by oral route. active Not Available Not Available Not Available Pro[employer]Med HC 2.5 % topical cream perineal applicator active Not Available Not Available N ot Available Vitals Date Recorded Body height Body mass index (BMI) Body weight Heart rate Systolic And Diastolic Provider Name and Address Organization Details Last Updated DateTime 12/13/2018 175.26 cm 38.4 kg/m2 992933.0 2 g 80 /min 147/88 mm[Hg] Arnold Veloz [employer] 12/13/2018 11:13:13 Date Recorded Body height Body weight Heart rate Systolic And Diastolic Provider Name and Address Organization Details Last Updated DateTime 03/01/2022 175.26 cm 695769.09 g 72 /min 135/74 mm[Hg] Zahra Adriana [address], [place], [address], [facility] [employer] [facility] 03/01/2022 18:01:13 Social History Question Answer Notes LastModified by Organizat ion Details LastModified Time Tobacco Smoking Status Current Every Day Smoker Arnold Veloz [facility], [place] [facility] 12/13/2018 11:15:03 Which Of Your Hands Is Dominant? Right Information not available 12/13/2018 Marital Status Informatio n not available 12/13/2018 What Was The Date Of Your Most Recent Tobacco Screening? 12/13/2018 Information not available 03/01/2019 What Types Of Sporting Activities Do You Participate In? Work, Hiking Information not available 12/13/2018 How Many Years Have You Smoked Tobacco? 20 Information not available 12/13/2018 Sex: Unknown Functional Status Question Answer Note LastModified by Organizat ion Details LastModified Time What is your level of alcohol consumption? 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 Heavy Information not available 12/13/2018 Mental Status None recorded. Family History Relationship Description Onset Age of this Age Resolved Age Notes LastModified by Organization Details LastModified Time Father Arthritis [email or web address] Not available 12/13/2018 11:14:11 Father Asthma [email or web address] Not available 11:14:42 Father Hypertensive disorder [email or web address] Not available 2018 11:14:54 Mother Arthritis bkaintz Not available 12/13/2018 11:14:11 Mother Heart disease bkaintz Not available 2018 11:14:21 Mother Hypertensive disorder bkaintz Not available 2018 11:14:54 Medical History Condition Response Coronary Artery Disease N HIV or AIDS N Gout N Kidney Stones N Hyperthyroidism N Hernia Y Head Trauma/Injury N Blood Clots N Lung Disease N Hypothyroidism N Depression N COPD N Pacemaker N Anxiety Disorder N Arthritis N Cancer Y Stroke N Neck Injury N Leg or Foot Ulcers N High Cholesterol N Liver Disease N Rheumatoid Arthritis N Headaches N Fibromyalgia N Kidney Disease N Heart Problems N Migraines N Thyroid Problems N Anemia N Multiple Sclerosis N Tendon Tear N Ulcers N Heart Attack ([place]) N Diabetes N Bleeding Disorder N Seizures/Epilepsy N Tuberculosis N Urinary Tract Infection N Back Problems N Diverticulitis N Asthma N Lupus N Peripheral Vascular Disease N Sleep Disorder N GERD/Reflux Y Hepatitis N Aneurysm N Heart Disease N Pulmonary Embolism N Hypertension N Osteoporosis N Past Encounters Encounter ID Performer Location Encounter Start Date Encounter Closed Date Diagnosis/Indication Diagnosis SNOMED-CT Code Diagnosis ICD10 Code Diagnosis Note [id number] Shailesh Shin MD [facility] [address] [facility] [address] [place] [address] 12/13/2018 10:41:20 12/13/2018 14:30:59 Pain of right shoulder joint 7331891645 3156518 M25.511 [id number] Freddie Sevilla MD [facility] [address] [place] MOTNERO [address] 03/01/2022 17:59:55 03/04/2022 12:06:09 Pain of knee region 2682806744 M25.569 Derangemen t of medial meniscus of right knee 0011264931 96926 M23.231 Health Concerns Section Related Observation LastModified by Organization Detai ls LastModified Time None Recorded Concern Status LastModified by Organization Details LastModified Time None Recorded Advance Directives Directive None Recorded Payers Insurance Date Sequence Insurance Name Policy Number Policy Nevarez Covered Member ID Nevarez Member ID Guarantor Name 03/04/2022 1 [facility] [id number] Carolina Duran [id number] Nahid Duran 02/25/2022 1 [facility] [id number] Anupam Araujoabdoul [id number] Nahid Duran Notes Date Note Type Note Provider Name and Address Organization Details Recorded Time 03/01/2022 text/html 46 y/o M present with RT sided knee pain. VAS: 7-8/10. Pt reports a popping sensation starting from an injury on February 13. Ibuprofen prn. He notes that his knee irene if he sits or stands for too long and tries to move too fast initially. His RT lower leg is swollen, has been swelling since 2018. LYNDA Bernard - [employer], [employer] 03/02/2022 08:39:17
--- OUTSIDE RECORDS SUMMARY | 2025-02-12 11:50 | XMS_ITS ---
Author Organization [facility] Address [address] [place] [address] Care Team Providers Care Medicare Contact Specialist Name Role Phone Mohan Camejo MD Primary Care Provider [phone] Arash Ford MD Unavailable [phone] Active Problems Problem Noted Date Diagnosed Date Pain of lower extremity 08/17/2023 CALVILLO (dyspnea on exertion) 03/03/2023 Cellulitis of right lower extremity without foot 02/02/2023 Hypertension 02/02/2023 Venous insufficiency 05/19/2022 Assessment & Plan (06/21/2022 9:49 PM TEARER PRESS CLIPPING): Mild lower extremity superficial Venous insufficiency. Continue [...] Patient does have compressions pumps provided by [facility] however, he is loosely compliant with using [...] 05/19/2022 Assessment & Plan (06/21/2022 9:49 PM TEARER PRESS CLIPPING): Lymphedema right lower extremity. No evidence of [...] veins of right lower extremity 12/14/19 19 Current Treatment and Therapy Plans No current plan information found. Past Treatment and Therapy Plans No past plan information found. Lifetime Dose Tracking * Chemical Lifetime Dose Automatic Entry Manual Entr y Air kerma at the reference point (Ka,r) 34 mGy 0 mGy 34 mGy Resolved Problems Problem Noted Date Diagnosed Date Resolved Date Altered mental status 01/31/20232022
--- OUTSIDE RECORDS SUMMARY | 2025-02-12 11:50 | XMS_ITS | Clinical Summary ---
Author Organization [facility] Address [address] [facility] [place] [address] Care Team Providers Care Field Service Specialist Name Role Phone Mohan Camejo MD Primary Care Provider [phone] Source Comments [facility],non-owned Affiliates and Associated Physician Practices is amultiple site organization consisting of ambulatory clinics and hospital sitesin [place], [place], [place] and [place]. This disclosure is being madepursuant to the Care Everywhere program and may not contain all information available regarding this patient. Last updated 18.[facility] [employer] Allergies Active Allergy Reactions Criticality Noted Date Comments Ampicillin Itching Low 09/13/2012 Sulfa Drugs Itching,Rash Medium 09/13/2012 Medications * Be aware that medications may not be up to date on this document. Alwaysverify current medications with the patient. omeprazole (PRILOSEC) 40 MG capsule Take 1 (one) capsule by mouth once daily 5 10/21/2018 Active lisinopril (Prinivil; Zestril) 20 MG tablet 04/26/2023 Active meloxicam (Mobic) 15 MG tablet 04/26/2023 Active Active Problems Problem Noted Date Diagnosed Date Basal cell carcinoma 12/13/2018 Lentigines 12/13/2018 Seborrheic keratoses 12/13/2018 Multiple benign nevi 12/13/2018 Stucco keratoses 12/13/2018 Varicose veins of right lower extremity 12/14/19 19 Venous insufficiency Family History Medical History Relation Name Comments Asthma Father Cancer Maternal Grandmother Diabetes - Type 2 Mother Heart Failure Mother Renal Disease Mother CVA Neg Hx Cancer - Breast Neg Hx Cancer - Other Neg Hx Cancer - Skin, Melanoma Neg Hx Cancer - Skin, Non Melanoma Neg Hx Eczema Neg Hx Hemophilia Neg Hx Psoriasis Neg Hx Relation Name Status Comments Father Maternal Grandmother Mother Social History Tobacco Use Types Packs/Day Years Used Date Smoking Tobacco: Every Day Cigarettes 1 20 Smokeless Tobacco: Former Tobacco Cessation:Ready to Q uit: No; Counseling Given: Yes Alcohol Use Standard Drinks/Week Comments Yes 1 (1 standard drink = 0.6 oz pur e alcohol) rarely Sex and Gender Information Value Date Recorded Sex Assigned at Not on file Legal Sex Male 4:34 AM RAT POISONER Gender Identity Not on file Sexual Orientation Not on file Last Filed Vital Signs Vital Sign Reading Time Taken Comments Blood Pressure 149/94 05/28/2020 3:00 PM CDT Pulse 75 05/28/2020 3:00 PM CDT Temperature 36.3 C (97.3 F) 05/28/2020 9:41 AM CDT Respiratory Rate 17 05/28/2020 3:00 PM CDT Oxygen Saturation 99% 05/28/2020 3:00 PM CDT Inhaled Oxygen Concentration - - Weight 119.7 kg (263 lb 12.8 oz) 05/28/2020 9:47 AM CDT Height 175.3 cm (5' 9) 05/28/2020 9:47 AM CDT Body Mass Index 38.96 05/28/2020 9:47 AM CDT Plan of Treatment Upcoming Encounters Date Type Department Care Team (Late st Contact Info) Description 03/05/2025 2:30 PM CDT Office Visit [facility] - Dermatology [address] [place] [address], [place] [address] Alejandra Jose PA [address] [place] [address] [place] [address] Health Maintenance Due Date Last Done Comments COLOGACERD (AGES 45-75) - COL ON CA SCREENING 1975 COLON MONITORING 1975 COLONOSCOPY - COLON CA SCREENING 1975 CT COLONOGRAPHY - COLON CA SCREENING 1975 Colorectal Cancer Screening 1975 FIT - COLON CA SCREENING 1975 FLEX SIG - COLON CA SCREENING 1975 LIPID TESTING 1975 HIV SCREENING 1990 HEPATITIS C SCREENING 09/01/1993 DTAP/TDAP/TD VACCINES (1 - Tdap) 1994 HEPATITIS B VACCINE (1 of 3 - 19+ 3-dose series) 1994 COVID-19 VACCINE (1 - 2023-2 5 season) 2024 DEPRESSION SCREENING 08/08/2024 INFLUENZA VACCINE (#1) 2025 ZOSTER VACCINE (1 of 2) 2025 HIB VACCINE Aged Out No longer eligi ble based on patient's age to complete this topic HPV VACCINE Aged Out No longer eligi ble based on patient's age to complete this topic MENINGOCOCCAL (Group B) VACC INE SHARED DECISION-MAKING Aged Out No longer eligibl e based on patient's age to complete this topic MENINGOCOCCAL GROUPS A/C/Y/W VACCINE Aged Out No longer eligible b ased on patient's age to complete this topic Insurance [facility] Care Teams Field Service Specialist Relationship Specialty Start Date End Date Mohan Camejo MD PCP - General 11/03/18
--- OUTSIDE RECORDS SUMMARY | 2025-02-12 11:50 | XMS_ITS | Clinical Summary ---
Author Organization [facility] Address [address] [place] [address] Care Team Providers Care Resp Therapist Name Role Phone Mohan Camejo MD Primary Care Provider [phone] Arash Ford MD Unavailable [phone] Allergies Active Allergy Reactions Criticality Noted Date Comments Ampicillin Itching Low 09/13/2012 Sulfa (Sulfonamide Antibiotics) Rash,Itching Medium Medications omeprazole (PriLOSEC) 40 mg capsule 03/02/2022 Active lisinopriL (PRINIVIL,ZESTR IL) 40 mg tablet Take 1 tablet (40 mg total) by mouth daily 30 tablet 08/17/2023 Active NIFEdipine (NIFEdipine CC) 60 mg [...] 05/19/2022 Assessment & Plan (06/21/2022 9:49 PM PAPER LATCHER): Mild lower extremity superficial Venous insufficiency. Continue [...] Patient does have compressions pumps provided by [employer] however, he is loosely compliant with using [...] 05/19/2022 Assessment & Plan (06/21/2022 9:49 PM PAPER LATCHER): Lymphedema right lower extremity. No evidence of [...] Immunizations Immunization Administration Dates Next Due Td, adsorbed 04/25/1991 Surgical History Surgery Date Site/Laterality Comments SKIN CANCER EXCISION 08/08/2018 - 08/07/2019 face MENISCUS SURGERY 08/08/2021 - 08/07/2022 Right MENISCUS SURGERY 08/08/2020 - 08/07/2021 Left Medical History Medical History Date Comments No pertinent past medical history Pain of lower extremity Hypertension Sleep apnea Family History Medical History Relation Name Comments Asthma Father Hypertension Father Diabetes Mother Heart disease Mother Hypertension Mother Kidney disease Mother Relation Name Status Comments Father Alive Mother Alive Social History Tobacco Use Types Packs/Day Years [...] on file Legal Sex Male 7:04 PM PAPER LATCHER Gender Identity Not on file Sexual Orientation Not on file Obstetrics History Last Filed Vital Signs Vital Sign Reading Time Taken Comments Blood Pressure 153/66 09/23/2023 12:25 PM PAPER LATCHER Pulse 68 09/23/2023 12:25 PM PAPER LATCHER Temperature 37.2 C (98.9 F) 09/23/2023 7:06 AM PAPER LATCHER Respiratory Rate 18 09/23/2023 7:06 AM PAPER LATCHER Oxygen Saturation 98% 09/23/2023 12:25 PM PAPER LATCHER Inhaled Oxygen Concentration - - Weight 119.7 kg (264 lb) 09/23/2023 7:06 AM PAPER LATCHER Height 175.3 cm (5' 9) 09/23/2023 7:06 AM PAPER LATCHER Body Mass Index 38.99 09/23/2023 7:06 AM PAPER LATCHER Plan of Treatment Health Maintenance Due Date Last Done Comments Colon Cancer Screening-Colonoscopy 1975 Depression Screening 1975 Hepatitis C Screening 1975 DTaP/Tdap/Td Vaccine (1 - Tdap) 04/26/1991 1 Hepatitis B Screening 1993 Regular Well Visit/Exam 18-64 1993 Pneumococcal vaccine <65 (1 of 2 - PCV) 1994 Influenza Vaccine (Season Ended) 2025 Medical Devices Implanted Type Area Care Assistant Device Identifier Shelf Expiration Date Model / Serial / Lot [employer] Vascade Mvp 6-12fr Venous Closure [id number] - [id number] Implanted:Qty : 1 on 09/23/2023 by Crispin Sifuentes MD at [facility] Collagen Right: Femoral Vein [employer] 06/08/2025 800-612C- [id number] / / [id number] [employer] Vascade Mvp 6-12fr Venous Closure [id number] - [id number] Implanted:Qty : 1 on 09/23/2023 by Crispin Sifuentes MD at [facility] Collagen Left: Femoral Vein [employer] 06/08/2025 800-612C- 10U / / [id number] Insurance [facility] CHOICE PLUS [facility] HMO/PPO Address: [facility] [address] [place] [address] [facility] CHOICE [facility]US [facility] HMO/PPO Address: [address] [address] [place] [address] [facility] CHOICE [facility] HMO/PPO Address: [address] [address] [place] [address] Advance Directives For more information, please contact: [phone] * Full Code (Latest Code Status on File) Date Activated Date Inactivated Comments 01/31/2023 5:27 AM 02/02/2023 6:17 PM Care Teams Resp Therapist Relationship Specialty Start Date End Date Mohan Camejo MD [address] [address] PCP - General Family Medicine 05/18/22 Arash Ford MD [address] [place] [address] Surgeon Vascular Surgery 06/08/22
== END 2025-02-12 11:44 | disposition home or self-care (01) ==
LOC: ANHIMG 11:49
PROVIDERS: PCP Family Medicine; Referring Provider Family Medicine; Visit Provider Nurse Practitioner Family
DX: M19.011 Primary osteoarthritis, right shoulder (principal); R06.09 Other forms of dyspnea; G89.11 Acute pain due to trauma
CPT/HCPCS: 71250; 73030

== ENCOUNTER 2025-02-20 10:33 | Outpatient (CLI) | payer OTHER, SELFPAY ==
--- OUTSIDE RECORDS SUMMARY | 2025-02-20 10:51 | XMS_ITS | Clinical Summary ---
Author Organization [facility] Address [address] [facility] [place] [address] Care Team Providers Care Rubbing Bed Operator Name Role Phone Mohan Camejo MD Primary Care Provider [phone] Source Comments [facility],non-owned Affiliates and Associated Physician Practices is amultiple site organization consisting of ambulatory clinics and hospital sitesin [place], [place], [place] and [place]. This disclosure is being madepursuant to the Care Everywhere program and may not contain all information available regarding this patient. Last updated 18.[facility] Allergies Active Allergy Reactions Criticality Noted Date [...] on file Legal Sex Male 4:34 AM SPOUT TENDER Gender Identity Not on file Sexual Orientation [...] Office Visit [facility] - Dermatology [address] [place] [address], [place] [address] Alejandra Jose PA [address] [place] [address] [address] [place] [id number] Health Maintenance Due Date Last Done Comments [...] patient's age to complete this topic Insurance [facility] Care Teams Rubbing Bed Operator Relationship Specialty Start Date End Date Mohan Camejo MD PCP - General 11/03/18
--- OUTSIDE RECORDS SUMMARY | 2025-02-20 10:51 | XMS_ITS | Encounter Summary ---
Author Organization [facility] Address [address] [facility] [address] Care Team Providers Care Wet Crown Blocking Operator Name Role Phone Mohan Camejo MD Primary Care Provider [phone] Reason for Visit * Reason Onset Date Comments Returned Call 11/14/2018 Encounter Details Date Type Department Care Team (Late st Contact Info) Description 11/14/2018 Telephone [facility] General Dermatology [facility] [place] [address] Reena Silva MD [address] [facility] [address] [place] [address] Returned Call Social History Tobacco Use Types Packs/Day Years Used Date Smoking Tobacco: Every Day Cigarettes 1 20 Smokeless Tobacco: Former Alcohol Use Standard Drinks/Week Comments Yes 1 (1 standard drink = 0.6 oz pur e alcohol) rarely Sex and Gender Information Value Date Recorded Sex Assigned at Not on file 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 See result note for details. Reena Silva MD [facility] Resident - PGY-4 * Telephone Encounter - Rhonda Vera - 11/14/2018 10:36 AM CDT Pt returning Dr. Reagan call regarding results. Pt states he sometimes doesn't have service where he is at but will try his best to answer. documented in this encounter Plan of Treatment Upcoming Encounters Date Type Department Care Team (Late st Contact Info) Description 03/05/2025 2:30 PM CDT Office Visit [facility] - Dermatology [address] [place] [address], [facility] [place] [address] Alejandra Jose PA [address] [place] [address] [address] [place] [address] documented as of this encounter Visit Diagnoses Not on filedocumented in this encounter Care Teams Wet Crown Blocking Operator Relationship Specialty Start Date End Date Mohan Camejo MD PCP - General 11/03/18 documented as of this encounter
--- OUTSIDE RECORDS SUMMARY | 2025-02-20 10:51 | XMS_ITS | Data Portability ---
Author Organization [facility] [employer], [facility] Address [address] [address] Assessment Encounter Date Assessment Date Assessment LastModified [...] , shoulder - labrum tear [address] [facility] [place] [address] [facility], [address] [facility] [address], [place], [address], 9 10:45:36 Medication Orders None recorded. Patient TargetsNo targets recorded. Patient InstructionsNo instructions recorded. Reason for Referral None Reported. Results Created Date Observation Date Name Description Value Unit Range Abnormal Flag Note LastModifiedBy Organization Detail LastModifiedTime 12/16/19 19 12/13/2018 MR, flako segura No observ ation record ed. [email or web address] [facility] [address] [facility] [address], [place], [address], 12/15/2018 17:35:45 02/26/20 22 02/13/2022 MRI, knee, w/o contr ast No observ ation record ed. BARCODE Not Available 2021 16:13:26 Result Notes None recorded. Problems No Known Problems Procedures Surgical History Date Name Laterality Status Provider Name and Address Organization Details Recorded Time 2 Generic Procedure completed Maria Fernanda Lowe [facility], [facility] 03/02/2022 08:35:11 1 repair of tendo achilles completed [employer] Veloz [facility] 12/13/2018 11:16:13 9 Hernia [facility] 12/13/2018 11:15:59 Imaging Results None recorded. Procedure Notes None recorded. Medical Equipment None Reported. Allergies Allergen ID Allergen Name Allergen Category Reaction Reaction Severity Criticality Documentation Date Start Date Code Code System Note Provider Name and Address Organization Details Recorded Time 77968 Substance with sulfonami de structure and antibacte rial mechanism of action (substanc e) medicatio n Not available Not available Not available 12/13/2018 30093 8003 SNOMED [facility] 9 11:13:31 53242 ampicilli n medicatio n Not available Not available Not available 12/13/2018 733 RxNorm Kayceegraysonkatelynn [facility] 9 11:13:38 Medications Name Sig Start Date [...] Updated DateTime 12/13/2018 175.26 cm 38.4 kg/m2 737297.0 2 g 80 /min 147/88 mm[Hg] Arnold Veloz [employer] 12/13/2018 11:13:13 Date Recorded Body height Body weight Heart rate Systolic And Diastolic Provider Name and Address Organization Details Last Updated DateTime 03/01/2022 175.26 cm 325183.09 g 72 /min 135/74 mm[Hg] Zahra Adriana 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 Information not available 12/13/2018 What is [...] available 2018 11:14:54 Medical History Condition Response HIV or AIDS N Coronary Artery Disease N Gout N Kidney Stones N Hyperthyroidism N Head Trauma/Injury N Hernia Y Hypothyroidism N Depression N COPD N Blood Clots N Lung Disease N Pacemaker N Anxiety Disorder N Arthritis N Cancer Y Stroke N Neck Injury N Leg or Foot Ulcers N High Cholesterol N Liver Disease N Rheumatoid Arthritis N Headaches N Fibromyalgia N Kidney Disease N Heart Problems N Migraines N Thyroid Problems N Anemia N Multiple Sclerosis N Tendon Tear N Ulcers N Heart Attack (AR) N Diabetes N Bleeding Disorder N Seizures/Epilepsy [...] SNOMED-CT Code Diagnosis ICD10 Code Diagnosis Note [id number] Shailesh Shin MD [facility] [address] [facility] [address] [facility] [address] 12/13/2018 10:41:20 12/13/2018 14:30:59 Pain of right shoulder joint [id number] M25.511 [id number] Freddie Sevilla MD [facility] [address] [place] [address] 03/01/2022 17:59:55 03/04/2022 12:06:09 Pain of knee region [id number] M25.569 Derangemen t of medial meniscus of right knee [id number] 36859 M23.231 Health Concerns Section Related Observation LastModified by Organization Detai ls LastModified Time None Recorded Concern Status LastModified by Organization Details LastModified Time None Recorded Advance Directives Directive None Recorded Payers Insurance Date Sequence Insurance Name Policy Number Policy Nevarez Covered Member ID Nevarez Member ID Guarantor Name 03/04/2022 1 [facility] [id number] [place] Duran [id number] Nahid Duran 02/25/2022 1 [facility] (PPO[place] [id number] Anupam Araujoabdoul [id number] Nahid Duran Notes Date Note Type Note [...] been swelling since 2018. LYNDA Bernard - [employer] 03/02/2022 08:39:17
--- OUTSIDE RECORDS SUMMARY | 2025-02-20 10:51 | XMS_ITS | Referral Summary ---
Author Organization [facility] Address [address] [place] [address] Care Team Providers Care Mortgage Loan Underwriter Name Role Phone Mohan Camejo MD Primary Care Provider [phone] Arash Ford MD Unavailable [phone] Allergies Active Allergy Reactions Criticality Noted Date [...] 05/19/2022 Assessment & Plan (06/21/2022 9:49 PM MOTORS AND GENERATORS INSPECTOR): Mild lower extremity superficial Venous insufficiency. Continue [...] Patient does have compressions pumps provided by [employer] however, he is loosely compliant with using [...] 05/19/2022 Assessment & Plan (06/21/2022 9:49 PM MOTORS AND GENERATORS INSPECTOR): Lymphedema right lower extremity. No evidence of [...] on file Legal Sex Male 7:04 PM MOTORS AND GENERATORS INSPECTOR Gender Identity Not on file Sexual Orientation Not on file Last Filed Vital Signs Vital Sign Reading Time Taken Comments Blood Pressure 153/66 09/23/2023 12:25 PM MOTORS AND GENERATORS INSPECTOR Pulse 68 09/23/2023 12:25 PM MOTORS AND GENERATORS INSPECTOR Temperature 37.2 C (98.9 F) 09/23/2023 7:06 AM MOTORS AND GENERATORS INSPECTOR Respiratory Rate 18 09/23/2023 7:06 AM MOTORS AND GENERATORS INSPECTOR Oxygen Saturation 98% 09/23/2023 12:25 PM MOTORS AND GENERATORS INSPECTOR Inhaled Oxygen Concentration - - Weight 119.7 kg (264 lb) 09/23/2023 7:06 AM MOTORS AND GENERATORS INSPECTOR Height 175.3 cm (5' 9) 09/23/2023 7:06 AM MOTORS AND GENERATORS INSPECTOR Body Mass Index 38.99 09/23/2023 7:06 AM MOTORS AND GENERATORS INSPECTOR Plan of Treatment Not on file Medical Devices Implanted Type Area Bowling Ball Engraver Device Identifier Shelf Expiration Date Model / Serial / Lot [employer] Vascade Mvp 6-12fr Venous Closure [id number] - [id number] Implanted:Qty : 1 on 09/23/2023 by Crispin Sifuentes MD at [facility] Collagen Right: Femoral Vein [employer] 06/08/2025 800-612C- 10U / / [id number] [employer] Vascade Mvp 6-12fr Venous Closure [id number] - [id number] Implanted:Qty : 1 on 09/23/2023 by Crispin Sifuentes MD at [facility] Collagen Left: Femoral Vein [employer] 06/08/2025 800-612C- 10U / / [id number] Insurance [facility] CHOICE PLUS [facility] HMO/PPO Address: [facility] [address] [place] [address] [facility] UHC CHOICE PLUS [facility] HMO/PPO Address: [address] [address] [place] [address] [facility] CHOICE [facility]US [facility] HMO/PPO Address: [address] [address] [place] [address] Advance Directives For more information, please contact: [phone] * Full Code (Latest Code Status on File) Date Activated Date Inactivated Comments 01/31/2023 5:27 AM 02/02/2023 6:17 PM Care Teams Mortgage Loan Underwriter Relationship Specialty Start Date End Date Mohan Camejo MD [address] [address] PCP - General Family Medicine 05/18/22 Arash Ford MD [address] [facility] [address] [place] [address] Surgeon Vascular Surgery 06/08/22
--- OUTSIDE RECORDS SUMMARY | 2025-02-20 10:51 | XMS_ITS ---
Author Organization [facility] Address [address] [place] [address] Care Team Providers Care Membership Coordinator Name Role Phone Mohan Camejo MD Primary Care Provider [phone] Arash Ford MD Unavailable [phone] Active Problems Problem Noted Date Diagnosed Date Pain of lower extremity 08/17/2023 CALVILLO (dyspnea on exertion) 03/03/2023 Cellulitis of right lower extremity without foot 02/02/2023 Hypertension 02/02/2023 Venous insufficiency 05/19/2022 Assessment & Plan (06/21/2022 9:49 PM EDUCATIONAL PROGRAMMING DIRECTOR): Mild lower extremity superficial Venous insufficiency. Continue [...] Patient does have compressions pumps provided by [facility] however, he is loosely compliant with using [...] 05/19/2022 Assessment & Plan (06/21/2022 9:49 PM EDUCATIONAL PROGRAMMING DIRECTOR): Lymphedema right lower extremity. No evidence of [...]
--- OUTSIDE RECORDS SUMMARY | 2025-02-20 10:51 | XMS_ITS | Clinical Summary ---
Author Organization [facility] Address [address] [place] [address] Care Team Providers Care Ui Ux Developer Name Role Phone Mohan Camejo MD Primary Care Provider [phone] Arash Ford MD Unavailable [phone] Allergies Active Allergy Reactions Criticality Noted Date [...] 05/19/2022 Assessment & Plan (06/21/2022 9:49 PM INTERNSHIP): Mild lower extremity superficial Venous insufficiency. Continue [...] Patient does have compressions pumps provided by [employer] however, he is loosely compliant with using [...] 05/19/2022 Assessment & Plan (06/21/2022 9:49 PM INTERNSHIP): Lymphedema right lower extremity. No evidence of [...] on file Legal Sex Male 7:04 PM INTERNSHIP Gender Identity Not on file Sexual Orientation Not on file Obstetrics History Last Filed Vital Signs Vital Sign Reading Time Taken Comments Blood Pressure 153/66 09/23/2023 12:25 PM INTERNSHIP Pulse 68 09/23/2023 12:25 PM INTERNSHIP Temperature 37.2 C (98.9 F) 09/23/2023 7:06 AM INTERNSHIP Respiratory Rate 18 09/23/2023 7:06 AM INTERNSHIP Oxygen Saturation 98% 09/23/2023 12:25 PM INTERNSHIP Inhaled Oxygen Concentration - - Weight 119.7 kg (264 lb) 09/23/2023 7:06 AM INTERNSHIP Height 175.3 cm (5' 9) 09/23/2023 7:06 AM INTERNSHIP Body Mass Index 38.99 09/23/2023 7:06 AM INTERNSHIP Plan of Treatment Health Maintenance Due Date Last Done Comments Colon Cancer Screening-Colonoscopy 1975 Depression Screening 1975 Hepatitis C Screening 1975 DTaP/Tdap/Td Vaccine (1 - Tdap) 04/26/1991 1 Hepatitis B Screening 1993 Regular Well Visit/Exam 18-64 1993 Pneumococcal vaccine <65 (1 of 2 - PCV) 1994 Influenza Vaccine (#1) 2025 Medical Devices Implanted Type Area Commercial Review Appraiser Device Identifier Shelf Expiration Date Model / Serial / Lot [employer] Vascade Mvp 6-12fr Venous Closure [id number] - [id number] Implanted:Qty : 1 on 09/23/2023 by Crispin Sifuentes MD at [facility] Collagen Right: Femoral Vein [employer] 06/08/2025 800-612C- 10U / / [id number] [employer] Vascade Mvp 6-12fr Venous Closure [id number] - [id number] Implanted:Qty : 1 on 09/23/2023 by Crispin Sifuentes MD at [facility] Collagen Left: Femoral Vein [employer] 06/08/2025 800-612C- 10U / / [id number] Insurance CHOICE PLUS [facility] CHOICE PLUS [facility] CHOICE PLUS Advance Directives For more information, please contact: [phone] * Full Code (Latest Code Status on File) Date Activated Date Inactivated Comments 01/31/2023 5:27 AM 02/02/2023 6:17 PM Care Teams Ui Ux Developer Relationship Specialty Start Date End Date Mohan Camejo MD [address] [id number] PCP - General Family Medicine 05/18/22 Arash Ford MD [address] [place] [address] Surgeon Vascular Surgery 06/08/22
--- NOTE | 2025-02-20 12:13 | WPDPFTINT ---
PFT Procedure Performed PFT Procedure Performed Spirometry with Pre/Post Bronchodilator Plethysmography (Lung Vol) Diffusing Cap (DLCO) Flow Vol Loop PFT Interpretation This is a pulmonary function test with pre and post-bronchodilator spirometry, plethysmography and diffusing capacity. The test was performed and results interpreted in accordance with the 2019 and 2005 ATS/ERS Task Force guidelines respectively using the Global Lung Function Initiative-2012 reference equations. Patient demonstrated good effort and cooperation. Reproducibility criteria were met. The quality of the pre bronchodilator spirometry maneuver was Grade A and post bronchodilator spirometry maneuver was Grade A. Findings: Spirometry: The contour the Expiratory flow tracing demonstrates a mid expiratory plateau or knee pattern and 2 of 3 pre bronchodilator maneuvers and 2 of 3 post bronchodilator maneuvers. The contour of the inspiratory flow tracing is normal. The pre bronchodilator FVC is 5.49 L, 114% predicted. The pre bronchodilator FEV1 is 4.36 L, 114% predicted. The pre bronchodilator FEV1: FVC ratio is 79%. The post bronchodilator FVC is 5.31 L, representing a 3% decrease. The post bronchodilator FEV1 is 4.27 L, representing a 2% decrease. The post bronchodilator FEV1: FVC ratio is 80%. Plethysmography: The total lung capacity is 7.64 L, 113% predicted. The functional residual capacity is 3.82 L, 112% predicted. The residual volume is 2.15 L, 110% predicted. Diffusing capacity: The diffusing capacity unadjusted for hemoglobin and carboxyhemoglobin is 28.3, 93% predicted. The diffusing capacity adjusted for alveolar volume is 4.91, 106% predicted. Impression: There is a reproducible knee pattern of the expiratory flow tracing which can be a normal variant or pathologic and has been attributed to a choke point section of the bronchial tree. The normal variant is more common in younger female patients, decreases with age and is more pronounced in the post bronchodilator efforts. The pattern has also been described with kyphosis, kyphoscoliosis, central obstructing mass, and post lung transplantation. Otherwise, the spirometry is normal without evidence of an obstructive abnormality. There is no significant improvement after inhaling a single dose of albuterol. The lung volumes are normal. The diffusing capacity is normal. There are no prior studies for comparison
== END 2025-02-20 10:34 | disposition home or self-care (01) ==
PROVIDERS: PCP Family Medicine; Visit Provider Nurse Practitioner Family
DX: R06.09 Other forms of dyspnea (principal)
CPT/HCPCS: 94060; 94726; 94729

== ENCOUNTER 2025-03-10 20:34 | Observation (INO) | payer OTHER, SELFPAY ==
--- NOTE | ~2025-03-10 | XR_ITS ---
EXAMINATION: XR chest 2V Exam Date/Time: 03/10/2025 21:19 CDT HISTORY: dizzines Comparison: 02/03/2023. RESULT: Lines, tubes, and devices: None. Lungs and pleura: Ill-defined patchy subsegmental airspace disease in the left lower lung. Cardiomediastinal silhouette: Stable. Other: No acute osseous or upper abdominal finding. IMPRESSION: Subsegmental left lower lung atelectasis/consolidation. Reviewed, dictated and finalized at location K.
[2025-03-10 20:34] VITALS: BP 93/59; PULSE 92; RESP 18; TEMP 36.6; O2SAT 98
[2025-03-10 20:42] VITALS: PULSE 92
--- NOTE | 2025-03-10 20:44 | ECG_ITS ---
Test Date: 2025-03-10 20:40:35 Measurements Intervals [place] Rate: 91 P: 64 PA: 148 QRS: 71 QRSD: 92 T: 61 QT: 332 QTc: 408 Interpretive Statements SINUS RHYTHM NORMAL ECG No previous ECG available for comparison Electronically Signed On 03-11-2025 06:30:00 CDT by Giovanny Barney D.O.
[2025-03-10 20:59] LABS: Hematocrit 40.6 % (42.0-52.0); Hemoglobin 13.9 g/dL (14.0-18.0); Immature Granulocyte Percent A 0.6 % (0-0.5); Lymphocytes Absolute Auto 2.84 K/mm3 (0.9-3.2); Mean Corpuscular HGB Conc 34.2 g/dl (32-36); Mean Corpuscular Hemoglobin 30.7 pg (26-34); Mean Corpuscular Volume 89.6 fl (80-100); Nucleated Red Blood Cells Absolute Auto 0.000 K/mm3 (0.0-0.012); Nucleated Red Blood Cells Perc 0.0 % (0.0-0.2); Platelet Count Result 297 k/mm3 (150-375); Red Blood Count 4.53 M/mm3 (4.6-6.20); White Blood Count 13.5 K/mm3 (4.5-10.0)
[2025-03-10 21:22] LABS: Alanine Aminotransferase 38 U/L (6-50); Albumin Level 4.6 g/dL (3.5-5.1); Alkaline Phosphatase 123 U/L (38-126); Anion Gap 11 mmol/L (4-12); Aspartate Amino Transferase 34 U/L (17-59); Bilirubin,Total 0.5 mg/dL (0.2-1.3); Blood Urea Nitrogen 55 mg/dL (9-20); Calcium 9.3 mg/dL (8.4-10.2); Carbon Dioxide 25 mmol/L (22-30); Chloride 97 mmol/L (98-107); Estimated CRCL calculation 34 ml/min; Estimated Glomerular Filt Rate 22; Glucose 69 mg/dL (65-110); Potassium 5.8 mmol/L (3.4-5.0); Sodium 133 mmol/L (137-145); Total Protein 7.8 g/dL (6.3-8.2)
[2025-03-10 22:14] LABS: Creatine Kinase 234 U/L (55-170); Magnesium 2.4 mg/dL (1.6-2.3)
[2025-03-10 22:31] VITALS: BP 104/65; PULSE 88; RESP 19; O2SAT 99
--- OUTSIDE RECORDS SUMMARY | 2025-03-10 22:53 | XMS_ITS ---
Author Organization [facility] Address [address] [place] [address] Care Team Providers Care Conference Interpreter Name Role Phone Moahn Camejo MD Primary Care Provider [phone] Arash Ford MD Unavailable [phone] Active Problems Problem Noted Date Diagnosed Date Pain of lower extremity 08/17/2023 CALVILLO (dyspnea on exertion) 03/03/2023 Cellulitis of right lower extremity without foot 02/02/2023 Hypertension 02/02/2023 Venous insufficiency 05/19/2022 Assessment & Plan (06/21/2022 9:49 PM TECHNICIANS AND TRADES WORKERS): Mild lower extremity superficial Venous insufficiency. Continue [...] Patient does have compressions pumps provided by [facility] [employer] however, he is loosely compliant with using [...] 05/19/2022 Assessment & Plan (06/21/2022 9:49 PM TECHNICIANS AND TRADES WORKERS): Lymphedema right lower extremity. No evidence of [...]
--- OUTSIDE RECORDS SUMMARY | 2025-03-10 22:53 | XMS_ITS | Clinical Summary ---
Author Organization [facility] Address [address] [facility] [place] [address] Care Team Providers Care Seismic Prospecting Observer Helper Name Role Phone Mohan Camejo MD Primary Care Provider [phone] Source Comments [facility],non-owned Affiliates and Associated Physician Practices is amultiple site organization consisting of ambulatory clinics and hospital sitesin [place], [place], [place] and [place]. This disclosure is being madepursuant to the Care Everywhere program and may not contain all information available regarding this patient. 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 Care Teams Seismic Prospecting Observer Helper Relationship Specialty Start Date End Date Mohan Camejo MD PCP - General 11/03/18
--- OUTSIDE RECORDS SUMMARY | 2025-03-10 22:53 | XMS_ITS | Referral Summary ---
Author Organization [facility] Address [address] [place] [address] Care Team Providers Care Dishwasher Name Role Phone Mohan Camejo MD Primary Care Provider [phone] Arash Ford MD Unavailable [phone] Allergies Active Allergy Reactions Criticality Noted Date [...] 05/19/2022 Assessment & Plan (06/21/2022 9:49 PM MANAGER PRODUCT MARKETING): Mild lower extremity superficial Venous insufficiency. Continue [...] Patient does have compressions pumps provided by [employer] however, he is loosely compliant with using [...] 05/19/2022 Assessment & Plan (06/21/2022 9:49 PM MANAGER PRODUCT MARKETING): Lymphedema right lower extremity. No evidence of [...] on file Legal Sex Male 7:04 PM MANAGER PRODUCT MARKETING Gender Identity Not on file Sexual Orientation Not on file Last Filed Vital Signs Vital Sign Reading Time Taken Comments Blood Pressure 153/66 09/23/2023 12:25 PM MANAGER PRODUCT MARKETING Pulse 68 09/23/2023 12:25 PM MANAGER PRODUCT MARKETING Temperature 37.2 C (98.9 F) 09/23/2023 7:06 AM MANAGER PRODUCT MARKETING Respiratory Rate 18 09/23/2023 7:06 AM MANAGER PRODUCT MARKETING Oxygen Saturation 98% 09/23/2023 12:25 PM MANAGER PRODUCT MARKETING Inhaled Oxygen Concentration - - Weight 119.7 kg (264 lb) 09/23/2023 7:06 AM MANAGER PRODUCT MARKETING Height 175.3 cm (5' 9) 09/23/2023 7:06 AM MANAGER PRODUCT MARKETING Body Mass Index 38.99 09/23/2023 7:06 AM MANAGER PRODUCT MARKETING Plan of Treatment Not on file Medical Devices Implanted Type Area Production Troubleshooter Device Identifier Shelf Expiration Date Model / Serial / Lot [employer] Vascade Mvp 6-12fr Venous Closure [id number] - [id number] Implanted:Qty : 1 on 09/23/2023 by Crispin Sifuentes MD at [facility] Collagen Right: Femoral Vein [employer] 06/08/2025 800-612C- 10U / / [id number] [employer] Vascade Mvp 6-12fr Venous Closure [id number] - [id number] Implanted:Qty : 1 on 09/23/2023 by Crispin Sifuentes MD at [facility] Collagen Left: Femoral Vein [employer] 06/08/2025 800-612C- 10U / / [id number] Insurance [facility] CHOICE PLUS [facility] UHC CHOICE PLUS [facility] CHOICE PLUS Advance Directives For more information, please contact: [phone] * Full Code (Latest Code Status on File) Date Activated Date Inactivated Comments 01/31/2023 5:27 AM 02/02/2023 6:17 PM Care Teams Dishwasher Relationship Specialty Start Date End Date Mohan Camejo MD [address] [address] PCP - General Family Medicine 05/18/22 Arash Ford MD [address] [place] [address] Surgeon Vascular Surgery 06/08/22
--- OUTSIDE RECORDS SUMMARY | 2025-03-10 22:53 | XMS_ITS | Encounter Summary ---
Author Organization [facility] Address [address] [facility] [place] [address] Care Team Providers Care Road Conductor Name Role Phone Mohan Camejo MD Primary Care Provider [phone] Reason for Visit * Reason Onset Date Comments Returned Call 11/14/2018 Encounter Details Date Type Department Care Team (Late st Contact Info) Description 11/14/2018 Telephone [facility] General Dermatology [facility] [place] [address] Reena Silva MD [address] [facility] [address] [place] [id number] Returned Call Social History Tobacco Use Types Packs/Day Years Used Date Smoking Tobacco: Every Day Cigarettes 1 20 Smokeless Tobacco: Former Alcohol Use Standard Drinks/Week Comments Yes 1 (1 standard drink = 0.6 oz pur e alcohol) rarely Sex and Gender Information Value Date Recorded Sex Assigned at Not on file 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
--- OUTSIDE RECORDS SUMMARY | 2025-03-10 22:53 | XMS_ITS | Clinical Summary ---
Author Organization [facility] Address [address] [place] [address] Care Team Providers Care Mechanical Maintenance Supervisor Name Role Phone Mohan Camejo MD Primary Care Provider [phone] Arash Ford MD Unavailable [phone] Allergies Active Allergy Reactions Criticality Noted Date [...] 05/19/2022 Assessment & Plan (06/21/2022 9:49 PM PIPE OUT WORKER): Mild lower extremity superficial Venous insufficiency. Continue [...] Patient does have compressions pumps provided by [employer] however, he is loosely compliant with using [...] 05/19/2022 Assessment & Plan (06/21/2022 9:49 PM PIPE OUT WORKER): Lymphedema right lower extremity. No evidence of [...] on file Legal Sex Male 7:04 PM PIPE OUT WORKER Gender Identity Not on file Sexual Orientation Not on file Obstetrics History Last Filed Vital Signs Vital Sign Reading Time Taken Comments Blood Pressure 153/66 09/23/2023 12:25 PM PIPE OUT WORKER Pulse 68 09/23/2023 12:25 PM PIPE OUT WORKER Temperature 37.2 C (98.9 F) 09/23/2023 7:06 AM PIPE OUT WORKER Respiratory Rate 18 09/23/2023 7:06 AM PIPE OUT WORKER Oxygen Saturation 98% 09/23/2023 12:25 PM PIPE OUT WORKER Inhaled Oxygen Concentration - - Weight 119.7 kg (264 lb) 09/23/2023 7:06 AM PIPE OUT WORKER Height 175.3 cm (5' 9) 09/23/2023 7:06 AM PIPE OUT WORKER Body Mass Index 38.99 09/23/2023 7:06 AM PIPE OUT WORKER Plan of Treatment Health Maintenance Due Date Last Done Comments Colon Cancer Screening-Colonoscopy 1975 Depression Screening 1975 Hepatitis C Screening 1975 DTaP/Tdap/Td Vaccine (1 - Tdap) 04/26/1991 1 Hepatitis B Screening 1993 Regular Well Visit/Exam 18-64 1993 Pneumococcal vaccine <65 (1 of 2 - PCV) 1994 Influenza Vaccine (#1) 2025 Medical Devices Implanted Type Area Production Machinist Device Identifier Shelf Expiration Date Model / Serial / Lot [employer] Vascade Mvp 6-12fr Venous Closure [id number] - [id number] Implanted:Qty : 1 on 09/23/2023 by Crispin Sifuentes MD at [facility] Collagen Right: Femoral Vein [employer] 06/08/2025 800-612C- 10U / / [id number] [employer] Vascade Mvp 6-12fr Venous Closure [id number] - [id number] Implanted:Qty : 1 on 09/23/2023 by Crispin Sifuentes MD at [facility] Collagen Left: Femoral Vein [employer] 06/08/2025 800-612C- 10U / / [id number] Insurance CHOICE PLUS [facility] HMO/PPO Address: [facility] [address] [place] [address] [facility] CHOICE PLUS [facility] H[facility]/PPO Address: [address] [address] [place] [address] [facility] CHOICE PLUS [facility] HMO/PPO Address: [address] [address] [place] [address] Advance Directives For more information, please contact: [phone] * Full Code (Latest Code Status on File) Date Activated Date Inactivated Comments 01/31/2023 5:27 AM 02/02/2023 6:17 PM Care Teams Mechanical Maintenance Supervisor Relationship Specialty Start Date End Date Mohan Camejo MD [address] [id number] PCP - General Family Medicine 05/18/22 Arash Ford MD [address] [place] [address] Surgeon Vascular Surgery 06/08/22
[2025-03-11] VITALS (12 sets, daily range): BP systolic 101–137; BP diastolic 62–72; PULSE 74–97; RESP 13–20; TEMP 35.7–36.6; O2SAT 97–100; BMI 37.6
--- NOTE | 2025-03-11 00:16 | ED_ITS ---
HPI - Dizziness General Chief Complaint: Dizziness <Kaylin Maciel APRN - Last Filed: 03/11/25 02:38> Stated Complaint: HYPOTENSIVE, DIZZINESS <Kaylin Maciel APRN - Last Filed: 03/11/25 02:38> Time Seen by Provider: 03/10/25 22:45 <Kaylin Maciel APRN - Last Filed: 03/11/25 02:38> History of Present Illness HPI Narrative: Patient is a 49-year-old male who presents to the ER with complaints of dehydration. He reports he has a history of heat strokes. Earlier today patient was working outside. He reports he started feeling lightheaded and weak. Patient reports EMS was called and they noted his blood pressure was low. He reports he intermittently has difficulty breathing where he feels as though he is suffocating and his throat is closing. Patient reports he had 1 of these episodes earlier today. He endorses a history of sleep apnea, R leg lymphedema, high blood pressure, and gastric reflux disease. Patient reports he drinks ?about 5-6 liquid IV packets each day because I sweat so much. He denies any chest pain, recent fevers, abdominal pain, or urinary symptoms. <Kaylin Maciel APRN - Last Filed: 03/11/25 02:38> Related Data Home Medications: Home Medications ?Medication ?Instructions ?Recorded ?Confirmed ?Last Taken ?Type chlorhexidine gluconate 0.12 % 15 ml PO BID 03/11/25 03/11/25 Unknown History mouthwash clindamycin HCl 300 mg capsule 300 mg PO QID 03/11/25 03/11/25 Unknown History <Kaylin Maciel APRN - Last Filed: 03/11/25 02:38> Allergies/Adverse Reactions: Allergies Allergy/AdvReac Type Severity Reaction Status Date / Time adhesive tape Allergy Intermediate Itching Verified 08/29/24 08:58 Penicillins Allergy Mild Unknown Verified 08/29/24 08:58 ampicillin Allergy Unknown Unknown Verified 08/29/24 08:58 Sulfa (Sulfonamide Allergy Unknown Unknown Verified 08/29/24 08:58 Antibiotics) <Kaylin Maciel APRN - Last Filed: 03/11/25 02:38> Review of Systems 2 Review of Systems: All systems reviewed & are unremarkable except as noted in HPI and below <Kaylin Maciel APRN - Last Filed: 03/11/25 02:38> [facility] Past Medical History Medical History: Medical History (Updated 03/11/25 @ 04:42 by Anabela Sy DO) Acute pain of right shoulder due to trauma (~02/09/25) X-ray of the right shoulder reveals mild to moderate AC joint degenerative changes with no fracture or dislocation on 02/12/2025. Dyshidrotic eczema Seasonal allergic rhinitis Ophthalmic migraine Chronic superficial venous thrombosis of left lower extremity (~03/22/24) Venous Doppler study on 03/22/2024 reveals isolated soleal vein echogenic thrombus with partial exclusion on the left. Rupture of left Achilles tendon (~03/2024) Chronic pain of left knee Tobacco use disorder, continuous 3/4 of a pack daily with patient instructed to quit. Achilles tendinitis of left lower extremity (~06/2023) x-ray of the left ankle on 06/27/2023 reveals mild osteoarthritis of the talonavicular joint with inferior and posterior calcaneal spurs and calcifications of the Achilles tendon. 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 GERD (gastroesophageal reflux disease) Chronic acquired lymphedema Right lower extremity. venous Doppler study on 07/14/2023 was negative for DVT. Body mass index (bmi) 37.0-37.9, adult (05/21/19) Chronic depression CHEIKH on CPAP Patient was wearing his CPAP during the sleep study on 06/21/2023 for narcolepsy. <Kaylin Maciel APRN - Last Filed: 03/11/25 02:38> Surgical History Surgical History: Surgical History History of Achilles tendon repair On the left Biceps tendon tear Status post surgical repair on the right History of repair of right rotator cuff H/O inguinal hernia repair X3 History of arthroscopy of both knees 2 times a left knee 1 time on the right knee <Kaylni Maciel, DOLL DRESSER - Last Filed: 03/11/25 02:38> Family History Family History: Family History Father Asthma Mother Asthma Family history of cardiovascular disease Family history of kidney disease Grandparent Family history of malignant neoplasm <Kaylin Maciel APRN - Last Filed: 03/11/25 02:38> Social History Social History: Social History (Updated 03/11/25 @ 01:32 by Anabela Sy DO) Social History: Patient lives at home with his of 25 years and their 2 children. The patient has smoked up to a pack of cigarettes per day since he was teenager. 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 He does drink alcohol in moderation on occasion. He does not use illicit substances. He drinks large amounts of caffeinated soda at least 88 oz a day. Code status: Full code Surrogate decision maker: Smoking packs per day: 0.5 Smoking cigarettes per day: 10.0 Years smoked: 30 Smoking pack-years: 15.00 Smoking status: Current every day smoker Tobacco type: cigarettes Alcohol intake: never Substance use: never Substance use type: does not use Lack of Transportation: No Lack of Food: Never True Current Housing: I Have Housing Concerned About Future Housing: No Difficulty Paying Gas/Electric Bills: No Difficulty Paying for Meds: No Currently Unemployed: No Education: Trade/Vocational Certificate Difficulty w/ Childcare or Family Care: No Spiritual care concerns: No <Kaylin Maciel, DOLL DRESSER - Last Filed: 03/11/25 02:38> Exam 2 Narrative: GENERAL: Well appearing, well-nourished, non-toxic, in no acute distress. HEAD: Normocephalic, atraumatic. NECK: Supple. No adenopathy, no masses. RESPIRATORY: Airway patent, respirations nonlabored. Clear to auscultation bilaterally, no rales, rhonchi, wheezing. CARDIOVASCULAR: Regular rate and rhythm without murmurs, rubs, or gallops. Peripheral pulses 2+ and equal bilaterally. ABDOMINAL: Soft, nontender, nondistended, no hepatosplenomegaly. Normoactive BS. MUSCULOSKELETAL: Moves all extremities. Strength/ROM intact without gross deformities. SKIN: Warm, dry, normal color. No rashes. NEURO: A&O X3. Speech clear. Cranial nerves II-XII intact. No ataxic movements. PSYCHIATRIC: Appropriate mood and affect. Normal interaction. <Kaylin Maciel APRN - Last Filed: 03/11/25 02:38> Course REGIONAL CLINICAL RESEARCH ASSOCIATE/PA Physician Supervision REGIONAL CLINICAL RESEARCH ASSOCIATE notified me that this patient was being admitted due to electrolyte abnormalities. Had counseled that for hyperkalemia could defer sodium bicarb if not acidotic and to hold off on Lasix if poor kidney function. It was reported that patient became shaky and was diaphoretic, found to have hypoglycemia. Discussed with REGIONAL CLINICAL RESEARCH ASSOCIATE and learned that he had been given 10U insulin as part of hyperkalemia treatment. Advised that renal dosing may warrent 5U be used in the future. Interventions are performed including EKG. After 2 repeat blood glucose levels, patient deemed stable for admission. I did observe patient from the olivares at times and was available for consultation in the above ways but did not assess patient at bedside directly. <Kari Philippe MD - Last Filed: 03/11/25 10:00> Vital Signs Vital signs: Vital Signs Temperature 98 F 03/10/25 20:34 Pulse Rate 92 03/10/25 20:34 Respiratory Rate 18 03/10/25 20:34 Blood Pressure 93/59 L 03/10/25 20:34 Pulse Oximetry 98 03/10/25 20:34 Oxygen Delivery Room Air 03/10/25 20:34 Temperature 98 F 03/11/25 05:05 Pulse Rate 80 03/11/25 05:05 Respiratory Rate 20 03/11/25 05:05 Blood Pressure 134/72 03/11/25 05:05 Pulse Oximetry 97 03/11/25 05:05 Oxygen Delivery Room Air 03/10/25 20:34 <Kaylin Maciel APRN - Last Filed: 03/11/25 02:38> Vital Signs Temperature 98 F 03/10/25 20:34 Pulse Rate 92 03/10/25 20:34 Respiratory Rate 18 03/10/25 20:34 Blood Pressure 93/59 L 03/10/25 20:34 Pulse Oximetry 98 03/10/25 20:34 Oxygen Delivery Room Air 03/10/25 20:34 Temperature 98 F 03/11/25 05:05 Pulse Rate 80 03/11/25 05:05 Respiratory Rate 20 03/11/25 05:05 Blood Pressure 134/72 03/11/25 05:05 Pulse Oximetry 97 03/11/25 05:05 Oxygen Delivery Room Air 03/10/25 20:34 <Kari Philippe MD - Last Filed: 03/11/25 10:00> MDM - Dizziness MDM Narrative Medical decision making narrative: Patient is a 49-year-old male who presents to the ER with complaints of dehydration. He reports he has a history of heat strokes. Earlier today patient was working outside. He reports he started feeling lightheaded and weak. Patient reports EMS was called and they noted his blood pressure was low. He reports he intermittently has difficulty breathing where he feels as though he is suffocating and his throat is closing. Patient reports he had 1 of these episodes earlier today. He endorses a history of sleep apnea, high blood pressure, and gastric reflux disease. Patient reports he drinks ?about 5-6 liquid IV packets each day because I sweat so much. He denies any chest pain, recent fevers, abdominal pain, or urinary symptoms. Labs Ordered: CBC, CMP, lactic acid, magnesium, TSH, CK, CRP, ethanol, vitamin B12, folic acid, blood culture, UDS, UA Imaging Ordered: Chest x-ray Medications Ordered: 3 L normal saline IV bolus (1 L NS IV bolus given in EMS), ceftriaxone IV, azithromycin IV, glaucoma, D50, insulin 10 units, calcium gluconate Results: Patient's CBC indicates a white blood cell count of 13.5, red blood cell count of 4.53, hemoglobin of 13.9, and hematocrit of 40.6%. His chemistry indicates a sodium of 133, potassium of 5.8, chloride 97, BUN of 55, creatinine of 3.07, estimated GFR 22. Patient's magnesium is 2.4. His CK is 234. Patient's urinalysis indicates trace ketones. His chest x-ray indicates Lines, tubes, and devices: None. Lungs and pleura: Ill-defined patchy subsegmental airspace disease in the left lower lung. Cardiomediastinal silhouette: Stable. Other: No acute osseous or upper abdominal finding. Diagnosis: Acute kidney injury, hyperkalemia, rule out pneumonia 2400-Results of imaging and lab work shared with patient and his family. It was advised patient be admitted to the hospital for further evaluation and treatment. Patient and his family verbalized understanding and are in agreement with plan. 0100-Spoke with hospitalist, Dr. Sy, who was in agreement with plan for admission. Patient will be admitted to med/surg with telemetry. He will be given NS @ 150/hour. 0130- Pt called REGIONAL CLINICAL RESEARCH ASSOCIATE into his room as he suddenly became diaphoretic. He denies any chest pain, but endorses nausea. Pt declined any medication for nausea at this time. Will perform EKG. Pt's blood sugar was 52. Pt was given 1 amp Dextrose 50. He also ate an oatmeal creme pie. Two repeat blood glucose readings are 149 and 141. From pt's pulmonology note in September 2024, has a video on her phone of patient sitting up on the couch as he was dozing off and his head is tilted back, eyes rolling back, and hands twitching. He also has had episodes of intermittent shortness of breath where he feels like he cannot take a deep breath. wonders if they may be anxiety attacks but they don't seem to be triggered by any particular events. Patient thinks they may be related to high blood pressure episodes. CRITICAL CARE ADDENDUM: Indication: fluid resuscitation, R/O sepsis Time type: intermittent I provided a total of 36 minutes of critical care excluding separately billable procedures. This includes initial bedside evaluation, reviewing old records, review of testing done while under my care, discussion w/ the family, nurses, qm consultant and guiding the patient?s care while in the emergency department. Approximate time distribution: 6 minutes ? Initial evaluation, d/w involved parties, attempting to gather old records. 10 minutes ? Documenting medical record 10 minutes ? Review of results (EKGs, labs, imaging) 10 minutes ? Serial repeat bedside evaluation Excludes separately billable procedures. <Kaylin Maciel, ELLIE - Last Filed: 03/11/25 02:38> Differential Diagnosis Differential diagnosis: Likely orthostatic hypotension and other (Acute kidney injury, hyperkalemia, pneumonia, dehydration, rhabdomyolysis) <Kaylinroberto Maciel APRN - Last Filed: 03/11/25 02:38> Lab Data Attestation: I reviewed the patient's lab results. <Kaylin Maciel APRN - Last Filed: 03/11/25 02:38> Result diagrams: 03/11/25 06:00 03/11/25 06:00 <Kaylin Maciel APRN - Last Filed: 03/11/25 02:38> Labs: Lab Results 03/10/25 03/11/25 03/11/25 Range/Units 20:52 00:18 00:19 WBC 13.5 H (4.5-10.0) K/mm3 RBC 4.53 L (4.6-6.20) M/mm3 Hgb 13.9 L (14.0-18.0) g/dL Hct 40.6 L (42.0-52.0) % MCV 89.6 (80-100) fl MCH 30.7 (26-34) pg MCHC 34.2 (32-36) g/dl RDW 12.7 (11.5-14.5) % Plt Count 297 (150-375) k/mm3 MPV 8.9 (7.4-10.4) fl Immature Gran % (Auto) 0.6 H (0-0.5) % Neut % (Auto) 65.2 (45.5-73.1) % Lymph % (Auto) 21.1 (18.3-44.2) % Mower % (Auto) 9.4 H (2.6-8.5) % Eos % (Auto) 3.3 (0-4.4) % Baso % (Auto) 0.4 (0.2-1.2) % Lymph # (Auto) 2.84 (0.9-3.2) K/mm3 Mower # (Auto) 1.3 H (0.1-0.6) K/mm3 Eos # (Auto) 0.4 H (0-0.3) K/mm3 Baso # (Auto) 0.1 (0.0-0.1) K/mm3 Abs Immat Gran (auto) 0.08 H (0.00-0.031) K/mm3 Absolute Neuts (auto) 8.8 H (1.3-6.7) K/mm3 Absolute Nucleated RBC 0.000 (0.0-0.012) K/mm3 Nucleated RBC % 0.0 (0.0-0.2) % Sodium 133 L (137-145) mmol/L Potassium 5.8 H (3.4-5.0) mmol/L Chloride 97 L (98-107) mmol/L Carbon Dioxide 25 (22-30) mmol/L Anion Gap 11 (4-12) mmol/L BUN 55 H D (9-20) mg/dL Creatinine 3.07 H (0.7-1.3) mg/dL Estim Creat Clear Calc 34 ml/min Estimated GFR 22 L (59 - ) Glucose 69 (65-110) mg/dL Lactic Acid (0.7-2.0) mmol/L Calcium 9.3 (8.4-10.2) mg/dL Magnesium 2.4 H (1.6-2.3) mg/dL Total Bilirubin 0.5 (0.2-1.3) mg/dL AST 34 (17-59) U/L ALT 38 (6-50) U/L Alkaline Phosphatase 123 (38-126) U/L Total Creatine Kinase 234 H (55-170) U/L C-Reactive Protein 1.0 (<1.0) mg/dL Total Protein 7.8 (6.3-8.2) g/dL Albumin 4.6 (3.5-5.1) g/dL Vitamin B12 375.0 (239-931) pg/mL Folate 6.8 (2.76->20) ng/mL TSH (Reflex) 3.670 (0.465-4.68) uIU/mL Urine Color Yellow (Yellow) Urine Appearance Clear (Clear) Urine pH 5.0 (5.0-9.0) Ur Specific [place] 1.020 (1.001-1.035) Urine Protein Negative (Negative) mg/dL Urine Glucose (UA) Negative (Negative) mg/dL Urine Ketones Trace H (Negative) mg/dL Ur Blood (Man) Negative (Negative) Urine Nitrate Negative (Negative) Urine Bilirubin Negative (Negative) Urine Urobilinogen 0.2 (<2.0) mg/dL Leukocyte Esterase Rfl Negative (Negative) JULISSA/UL Urine Opiates Screen Negative (Negative) Urine Methadone Screen Negative (Negative) Ur Barbiturates Screen Negative (Negative) Ur Phencyclidine Scrn Negative (Negative) Ur Amphetamine Screen Positive A (Negative) U Benzodiazepines Scrn Negative (Negative) Urine Cocaine Screen Negative (Negative) U Cannabinoids Screen Negative (Negative) Ethyl Alcohol < 10 (<10) mg/dL 03/11/25 Range/Units 00:21 WBC (4.5-10.0) K/mm3 RBC (4.6-6.20) M/mm3 Hgb (14.0-18.0) g/dL Hct (42.0-52.0) % MCV (80-100) fl MCH (26-34) pg MCHC (32-36) g/dl RDW (11.5-14.5) % Plt Count (150-375) k/mm3 MPV (7.4-10.4) fl Immature Gran % (Auto) (0-0.5) % Neut % (Auto) (45.5-73.1) % Lymph % (Auto) (18.3-44.2) % Mower % (Auto) (2.6-8.5) % Eos % (Auto) (0-4.4) % Baso % (Auto) (0.2-1.2) % Lymph # (Auto) (0.9-3.2) K/mm3 Mower # (Auto) (0.1-0.6) K/mm3 Eos # (Auto) (0-0.3) K/mm3 Baso # (Auto) (0.0-0.1) K/mm3 Abs Immat Gran (auto) (0.00-0.031) K/mm3 Absolute Neuts (auto) (1.3-6.7) K/mm3 Absolute Nucleated RBC (0.0-0.012) K/mm3 Nucleated RBC % (0.0-0.2) % Sodium (137-145) mmol/L Potassium (3.4-5.0) mmol/L Chloride (98-107) mmol/L Carbon Dioxide (22-30) mmol/L Anion Gap (4-12) mmol/L BUN (9-20) mg/dL Creatinine (0.7-1.3) mg/dL Estim Creat Clear Calc ml/min Estimated GFR (59 - ) Glucose (65-110) mg/dL Lactic Acid 0.7 (0.7-2.0) mmol/L Calcium (8.4-10.2) mg/dL Magnesium (1.6-2.3) mg/dL Total Bilirubin (0.2-1.3) mg/dL AST (17-59) U/L ALT (6-50) U/L Alkaline Phosphatase (38-126) U/L Total Creatine Kinase (55-170) U/L C-Reactive Protein (<1.0) mg/dL Total Protein (6.3-8.2) g/dL Albumin (3.5-5.1) g/dL Vitamin B12 (239-931) pg/mL Folate (2.76->20) ng/mL TSH (Reflex) (0.465-4.68) uIU/mL Urine Color (Yellow) Urine Appearance (Clear) Urine pH (5.0-9.0) Ur Specific [place] (1.001-1.035) Urine Protein (Negative) mg/dL Urine Glucose (UA) (Negative) mg/dL Urine Ketones (Negative) mg/dL Ur Blood (Man) (Negative) Urine Nitrate (Negative) Urine Bilirubin (Negative) Urine Urobilinogen (<2.0) mg/dL Leukocyte Esterase Rfl (Negative) JULISSA/UL Urine Opiates Screen (Negative) Urine Methadone Screen (Negative) Ur Barbiturates Screen (Negative) Ur Phencyclidine Scrn (Negative) Ur Amphetamine Screen (Negative) U Benzodiazepines Scrn (Negative) Urine Cocaine Screen (Negative) U Cannabinoids Screen (Negative) Ethyl Alcohol (<10) mg/dL <Kaylin Maciel, DOLL DRESSER - Last Filed: 03/11/25 02:38> Lab Results 03/10/25 03/11/25 03/11/25 Range/Units 20:52 00:18 00:19 WBC 13.5 H (4.5-10.0) K/mm3 RBC 4.53 L (4.6-6.20) M/mm3 Hgb 13.9 L (14.0-18.0) g/dL Hct 40.6 L (42.0-52.0) % MCV 89.6 (80-100) fl MCH 30.7 (26-34) pg MCHC 34.2 (32-36) g/dl RDW 12.7 (11.5-14.5) % Plt Count 297 (150-375) k/mm3 MPV 8.9 (7.4-10.4) fl Immature Gran % (Auto) 0.6 H (0-0.5) % Neut % (Auto) 65.2 (45.5-73.1) % Lymph % (Auto) 21.1 (18.3-44.2) % Mower % (Auto) 9.4 H (2.6-8.5) % Eos % (Auto) 3.3 (0-4.4) % Baso % (Auto) 0.4 (0.2-1.2) % Lymph # (Auto) 2.84 (0.9-3.2) K/mm3 Mower # (Auto) 1.3 H (0.1-0.6) K/mm3 Eos # (Auto) 0.4 H (0-0.3) K/mm3 Baso # (Auto) 0.1 (0.0-0.1) K/mm3 Abs Immat Gran (auto) 0.08 H (0.00-0.031) K/mm3 Absolute Neuts (auto) 8.8 H (1.3-6.7) K/mm3 Absolute Nucleated RBC 0.000 (0.0-0.012) K/mm3 Nucleated RBC % 0.0 (0.0-0.2) % Sodium 133 L (137-145) mmol/L Potassium 5.8 H (3.4-5.0) mmol/L Chloride 97 L (98-107) mmol/L Carbon Dioxide 25 (22-30) mmol/L Anion Gap 11 (4-12) mmol/L BUN 55 H D (9-20) mg/dL Creatinine 3.07 H (0.7-1.3) mg/dL Estim Creat Clear Calc 34 ml/min Estimated GFR 22 L (59 - ) Glucose 69 (65-110) mg/dL Lactic Acid (0.7-2.0) mmol/L Calcium 9.3 (8.4-10.2) mg/dL Magnesium 2.4 H (1.6-2.3) mg/dL Total Bilirubin 0.5 (0.2-1.3) mg/dL AST 34 (17-59) U/L ALT 38 (6-50) U/L Alkaline Phosphatase 123 (38-126) U/L Total Creatine Kinase 234 H (55-170) U/L C-Reactive Protein 1.0 (<1.0) mg/dL Total Protein 7.8 (6.3-8.2) g/dL Albumin 4.6 (3.5-5.1) g/dL Vitamin B12 375.0 (239-931) pg/mL Folate 6.8 (2.76->20) ng/mL TSH (Reflex) 3.670 (0.465-4.68) uIU/mL Urine Color Yellow (Yellow) Urine Appearance Clear (Clear) Urine pH 5.0 (5.0-9.0) Ur Specific [place] 1.020 (1.001-1.035) Urine Protein Negative (Negative) mg/dL Urine Glucose (UA) Negative (Negative) mg/dL Urine Ketones Trace H (Negative) mg/dL Ur Blood (Man) Negative (Negative) Urine Nitrate Negative (Negative) Urine Bilirubin Negative (Negative) Urine Urobilinogen 0.2 (<2.0) mg/dL Leukocyte Esterase Rfl Negative (Negative) JULISSA/UL Urine Opiates Screen Negative (Negative) Urine Methadone Screen Negative (Negative) Ur Barbiturates Screen Negative (Negative) Ur Phencyclidine Scrn Negative (Negative) Ur Amphetamine Screen Positive A (Negative) U Benzodiazepines Scrn Negative (Negative) Urine Cocaine Screen Negative (Negative) U Cannabinoids Screen Negative (Negative) Ethyl Alcohol < 10 (<10) mg/dL 03/11/25 Range/Units 00:21 WBC (4.5-10.0) K/mm3 RBC (4.6-6.20) M/mm3 Hgb (14.0-18.0) g/dL Hct (42.0-52.0) % MCV (80-100) fl MCH (26-34) pg MCHC (32-36) g/dl RDW (11.5-14.5) % Plt Count (150-375) k/mm3 MPV (7.4-10.4) fl Immature Gran % (Auto) (0-0.5) % Neut % (Auto) (45.5-73.1) % Lymph % (Auto) (18.3-44.2) % Mower % (Auto) (2.6-8.5) % Eos % (Auto) (0-4.4) % Baso % (Auto) (0.2-1.2) % Lymph # (Auto) (0.9-3.2) K/mm3 Mower # (Auto) (0.1-0.6) K/mm3 Eos # (Auto) (0-0.3) K/mm3 Baso # (Auto) (0.0-0.1) K/mm3 Abs Immat Gran (auto) (0.00-0.031) K/mm3 Absolute Neuts (auto) (1.3-6.7) K/mm3 Absolute Nucleated RBC (0.0-0.012) K/mm3 Nucleated RBC % (0.0-0.2) % Sodium (137-145) mmol/L Potassium (3.4-5.0) mmol/L Chloride (98-107) mmol/L Carbon Dioxide (22-30) mmol/L Anion Gap (4-12) mmol/L BUN (9-20) mg/dL Creatinine (0.7-1.3) mg/dL Estim Creat Clear Calc ml/min Estimated GFR (59 - ) Glucose (65-110) mg/dL Lactic Acid 0.7 (0.7-2.0) mmol/L Calcium (8.4-10.2) mg/dL Magnesium (1.6-2.3) mg/dL Total Bilirubin (0.2-1.3) mg/dL AST (17-59) U/L ALT (6-50) U/L Alkaline Phosphatase (38-126) U/L Total Creatine Kinase (55-170) U/L C-Reactive Protein (<1.0) mg/dL Total Protein (6.3-8.2) g/dL Albumin (3.5-5.1) g/dL Vitamin B12 (239-931) pg/mL Folate (2.76->20) ng/mL TSH (Reflex) (0.465-4.68) uIU/mL Urine Color (Yellow) Urine Appearance (Clear) Urine pH (5.0-9.0) Ur Specific [place] (1.001-1.035) Urine Protein (Negative) mg/dL Urine Glucose (UA) (Negative) mg/dL Urine Ketones (Negative) mg/dL Ur Blood (Man) (Negative) Urine Nitrate (Negative) Urine Bilirubin (Negative) Urine Urobilinogen (<2.0) mg/dL Leukocyte Esterase Rfl (Negative) JULISSA/UL Urine Opiates Screen (Negative) Urine Methadone Screen (Negative) Ur Barbiturates Screen (Negative) Ur Phencyclidine Scrn (Negative) Ur Amphetamine Screen (Negative) U Benzodiazepines Scrn (Negative) Urine Cocaine Screen (Negative) U Cannabinoids Screen (Negative) Ethyl Alcohol (<10) mg/dL <Kari Philippe MD - Last Filed: 03/11/25 10:00> Imaging Data Attestation: I personally reviewed and interpreted this imaging study as follows: < Kaylin Maciel APRN - Last Filed: 03/11/25 02:38> Radiologist's impression: Impressions Chest X-Ray 03/10/25 21:46 IMPRESSION: Subsegmental left lower lung atelectasis/consolidation. <Kaylin Maciel APRN - Last Filed: 03/11/25 02:38> Critical Care Time Critical Care Time Critical Care Time: Yes <Kaylin Maciel APRN - Last Filed: 03/11/25 02:38> Total Critical Care Time: 36 <Kaylin Maciel APRN - Last Filed: 03/11/25 02:38> Discharge Plan Discharge Clinical Impression: Acute kidney injury, Acute hyperkalemia, Pneumonia <Kaylin Maciel APRN - Last Filed: 03/11/25 02:38> Patient Disposition: Still a Patient <Kaylin Maciel APRN - Last Filed: 03/11/25 02:38> Condition: Stable <Kaylin Maciel APRN - Last Filed: 03/11/25 02:38>
[2025-03-11 00:36] LABS: Add Urine Microscopic? NO; Appearance Urine Clear (Clear); Glucose Urine UA Negative (Negative); Leukocyte Esterase Ur Negative LEU/UL (Negative); Nitrate Urine Negative (Negative); Specific Grav Ur 1.020 (1.001-1.035)
[2025-03-11] MEDS: cefTRIAXone 1 GM in SODIUM CHLORIDE 0.9% IV 50 ML 100 ML IVPB (00:36)
[2025-03-11] MEDS: SODIUM CHLORIDE 0.9% IV 1,000 ML 999 ML IV CONT ×3 (00:36→00:40)
[2025-03-11] MEDS: CALCIUM GLUCONATE 1,000 MG/10 ML VIAL 1000 MG IV PUSH (00:39)
[2025-03-11] MEDS: SODIUM ZIRCONIUM CYCLOSILICATE 10 GM POWD.PACK PO (00:39)
[2025-03-11] MEDS: INSULIN HUMAN REGULAR (*BKC) 100 UNITS/ML 10 UNITS IV PUSH (00:39)
[2025-03-11] MEDS: DEXTROSE 50% 25 GM/50 ML SYRINGE IV PUSH ×2 (00:40→01:49)
[2025-03-11 00:53] LABS: Cannabinoid Screen Urine Negative (Negative)
--- NOTE | 2025-03-11 01:03 | PM.IMHP ---
H&P: HPI History of Present Illness Date/Time: 03/11/25 01:03 Chief Complaint: Shortness of breath Narrative: 49-year-old male with a past medical history of obesity, obstructive sleep apnea, narcolepsy, essential hypertension, GERD and prior episode of heat stroke resulting in hypertensive urgency and resulting respiratory failure requiring intubation in 2022 who presented to the ER with shortness of breath. The patient reports that he was outside working in the yd and sweating excessively. He had stirred up some leaves and PAL in from [employer] and started to feel like his airway may be closing. He felt like his airway was intermittently closing. When EMS arrived at the patient's residence the patient he was hyperventilating and was hypotensive. The patient's blood pressures were 82/56. Patient does admit that he had been intermittently lightheaded while outside working a. He had been outside all day and has a tendency to sweat excessively. He had not eaten all day. He had been drinking fiber 6 liquid IV packs a day but was not drinking additional free water. He has been having severe muscle cramps down his legs. By the time he had arrived to the ER he was no longer having any shortness of breath. He had not noticed any wheezing. He reported some coughing after staring up the yd waste but had not had any coughing prior to that. He denied any fevers or chills. He had prior PFTs that were not suggestive of any obstructive or restrictive lung disease. He thinks he may be allergic to sick more pollen but has never been allergy tested. He was not having any chest pain or palpitations. He routinely does not urinate much during the summer due to the degree of is sweating. He also drinks excessive amounts of caffeine in the form of soda. Patient's blood pressures on arrival to the ER were still soft at 93/59. He received 1 L fluid bolus by EMS an additional 3 L in the ER. His blood pressures normalized. He had not had any nausea or vomiting. Just prior to being transported to the medical for the patient became acutely diaphoretic and nauseous. His glucose was obtained at that time is found to be low at 52. He had received 10 units of IV insulin to treat his hyperkalemia earlier in the ER stay. He received some juice and IV dextrose with repeat glucose of 149. He does report episodes of becoming shaky and diaphoretic in the past but has never thought to check his blood sugars. He does not have a known history of diabetes. The patient had been evaluated in the ER in January of 2023 with similar symptoms and was transferred to [place] for evaluation for possible encephalitis. It was later determined that the patient's symptoms were due to heat stroke resulting in hypertensive crisis. The patient had been intubated for 2-3 days. His reports that ever since that hospitalization the patient does not tolerate heat very well. She reports that he has some difficulty with jerking movements and difficulties with memory and focus since that time. She reports the patient still refuses to slow down and frequently does not sleep enough. Patient is compliant with his home CPAP. He reports that he had recent dental procedure is on clindamycin due to the dental procedure. He reports some expected soreness in his mouth due to this and is also using chlorhexidine mouthwash. Review of Systems Review of Systems: 12 systems were reviewed with pertinent positives and negatives per HPI. Except as documented in the HPI, all other systems were reviewed and are negative. [facility] Past Medical History Medical History (Updated 03/11/25 @ 04:42 by Anabela Sy, DO) Acute pain of right shoulder due to trauma (~02/09/25) X-ray of the right shoulder reveals mild to moderate AC joint degenerative changes with no fracture or dislocation on 02/12/2025. Dyshidrotic eczema Seasonal allergic rhinitis Ophthalmic migraine Chronic superficial venous thrombosis of left lower extremity (~03/22/24) Venous Doppler study on 03/22/2024 reveals isolated soleal vein echogenic thrombus with partial exclusion on the left. Rupture of left Achilles tendon (~03/2024) Chronic pain of left knee Tobacco use disorder, continuous 3/4 of a pack daily with patient instructed to quit. Achilles tendinitis of left lower extremity (~06/2023) x-ray of the left ankle on 06/27/2023 reveals mild osteoarthritis of the talonavicular joint with inferior and posterior calcaneal spurs and calcifications of the Achilles tendon. 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 GERD (gastroesophageal reflux disease) Chronic acquired lymphedema Right lower extremity. venous Doppler study on 07/14/2023 was negative for DVT. Body mass index (bmi) 37.0-37.9, adult (05/21/19) Chronic depression CHEIKH on CPAP Patient was wearing his CPAP during the sleep study on 06/21/2023 for narcolepsy. Surgical History Surgical History History of Achilles tendon repair On the left Biceps tendon tear Status post surgical repair on the right History of repair of right rotator cuff H/O inguinal hernia repair X3 History of arthroscopy of both knees 2 times a left knee 1 time on the right knee Family History Family History Father Asthma Mother Asthma Family history of cardiovascular disease Family history of kidney disease Grandparent Family history of malignant neoplasm Social History Social History (Updated 03/11/25 @ 01:32 by Anabela Sy DO) Social History: Patient lives at home with his of 25 years and their 2 children. The patient has smoked up to a pack of cigarettes per day since he was teenager. 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 He does drink alcohol in moderation on occasion. He does not use illicit substances. He drinks large amounts of caffeinated soda at least 88 oz a day. Code status: Full code Surrogate decision maker: Smoking packs per day: 0.5 Smoking cigarettes per day: 10.0 Years smoked: 30 Smoking pack-years: 15.00 Smoking status: Current every day smoker Tobacco type: cigarettes Alcohol intake: never Substance use: never Substance use type: does not use Lack of Transportation: No Lack of Food: Never True Current Housing: I Have Housing Concerned About Future Housing: No Difficulty Paying Gas/Electric Bills: No Difficulty Paying for Meds: No Currently Unemployed: No Education: Trade/Vocational Certificate Difficulty w/ Childcare or Family Care: No Spiritual care concerns: No Meds Home Medications and Allergies Home Medications ?Medication ?Instructions ?Recorded ?Confirmed ?Type epinephrine 0.3 mg/0.3 mL 0.3 mg (0.3 mL) IM ONCE #2 ea 04/05/23 03/11/25 Rx injection, auto-injector (EpiPen 2-Jan) omeprazole 40 mg capsule,delayed 40 mg PO DAILY #90 caps 04/27/24 03/11/25 Rx release lisinopril 40 mg tablet 40 mg PO DAILY #90 tabs 05/16/24 03/11/25 Rx armodafinil 150 mg tablet 150 mg PO QAM #90 tabs 10/17/24 03/11/25 Rx indomethacin 75 mg 75 mg PO BID PRN pain #60 caps 02/20/25 03/11/25 Rx capsule,extended release chlorhexidine gluconate 0.12 % 15 ml PO BID 03/11/25 03/11/25 History mouthwash clindamycin HCl 300 mg capsule 300 mg PO QID 03/11/25 03/11/25 History Allergies Allergy/AdvReac Type Severity Reaction Status Date / Time adhesive tape Allergy Intermediate Itching Verified 08/29/24 08:58 Penicillins Allergy Mild Unknown Verified 08/29/24 08:58 ampicillin Allergy Unknown Unknown Verified 08/29/24 08:58 Sulfa (Sulfonamide Allergy Unknown Unknown Verified 08/29/24 08:58 Antibiotics) Vital Signs Vital Signs - 24 hr 03/10/25 20:34 03/10/25 20:42 03/10/25 22:31 Temperature 98 F Pulse Rate 92 92 88 Respiratory Rate 18 19 Blood Pressure 93/59 L 104/65 Pulse Oximetry 98 99 Oxygen Delivery Room Air Exam Narrative: Weight 115 point 9 kg BMI 37.7 Const: Other: No acute distress, obese, appears stated age, sitting up on the side of the bed HENMT: Other: Mucous membranes are tacky, no oral pharyngeal erythema, crowded posterior oropharynx, short uvula Eyes: Other: Pupils are equal and reactive, no scleral icterus, no conjunctival pallor Neck: Other: Large neck circumference, no JVD, no thyromegaly Resp: Other: Clear to auscultation bilaterally, no increased work of breathing Cardio: Other: Regular rate, regular rhythm, 2+ bilateral radial pedal pulses GI: Other: Obese, soft, nontender Skin: Other: Darkly tanned, non jaundice, no rashes Neuro: Other: Alert oriented x4, speech is clear, no facial asymmetry, cranial nerves 2-12 grossly intact Extrem: Other: No clubbing, no cyanosis, chronic edema right lower extremity Psych: Other: Anxious, otherwise pleasant and cooperative, poor insight and judgment H&P: Results Labs Labs: Laboratory Tests 03/10/25 20:52 03/10/25 20:52 03/10/25 03/11/25 03/11/25 20:52 00:18 00:19 WBC 13.5 H RBC 4.53 L Hgb 13.9 L Hct 40.6 L MCV 89.6 MCH 30.7 MCHC 34.2 RDW 12.7 Plt Count 297 MPV 8.9 Immature Gran % (Auto) 0.6 H Neut % (Auto) 65.2 Lymph % (Auto) 21.1 [place] % (Auto) 9.4 H Eos % (Auto) 3.3 Baso % (Auto) 0.4 Lymph # (Auto) 2.84 [place] # (Auto) 1.3 H Eos # (Auto) 0.4 H Baso # (Auto) 0.1 Abs Immat Gran (auto) 0.08 H Absolute Neuts (auto) 8.8 H Absolute Nucleated RBC 0.000 Nucleated RBC % 0.0 Sodium 133 L Potassium 5.8 H Chloride 97 L Carbon Dioxide 25 Anion Gap 11 BUN 55 H D Creatinine 3.07 H Estim Creat Clear Calc 34 Estimated GFR 22 L Glucose 69 Lactic Acid Calcium 9.3 Magnesium 2.4 H Total Bilirubin 0.5 AST 34 ALT 38 Alkaline Phosphatase 123 Total Creatine Kinase 234 H C-Reactive Protein Pending Total Protein 7.8 Albumin 4.6 Vitamin B12 Pending Folate Pending TSH (Reflex) Pending Urine Color Yellow Urine Appearance Clear Urine pH 5.0 Ur Specific [place] 1.020 Urine Protein Negative Urine Glucose (UA) Negative Urine Ketones Trace H Ur Blood (Man) Negative Urine Nitrate Negative Urine Bilirubin Negative Urine Urobilinogen 0.2 Leukocyte Esterase Rfl Negative Urine Opiates Screen Negative Urine Methadone Screen Negative Ur Barbiturates Screen Negative Ur Phencyclidine Scrn Negative Ur Amphetamine Screen Pending U Benzodiazepines Scrn Negative Urine Cocaine Screen Negative U Cannabinoids Screen Negative Ethyl Alcohol < 10 03/11/25 00:21 WBC RBC Hgb Hct MCV MCH MCHC RDW Plt Count MPV Immature Gran % (Auto) Neut % (Auto) Lymph % (Auto) [place] % (Auto) Eos % (Auto) Baso % (Auto) Lymph # (Auto) [place] # (Auto) Eos # (Auto) Baso # (Auto) Abs Immat Gran (auto) Absolute Neuts (auto) Absolute Nucleated RBC Nucleated RBC % Sodium Potassium Chloride Carbon Dioxide Anion Gap BUN Creatinine Estim Creat Clear Calc Estimated GFR Glucose Lactic Acid 0.7 Calcium Magnesium Total Bilirubin AST ALT Alkaline Phosphatase Total Creatine Kinase C-Reactive Protein Total Protein Albumin Vitamin B12 Folate TSH (Reflex) Urine Color Urine Appearance Urine pH Ur Specific Wood Urine Protein Urine Glucose (UA) Urine Ketones Ur Blood (Man) Urine Nitrate Urine Bilirubin Urine Urobilinogen Leukocyte Esterase Rfl Urine Opiates Screen Urine Methadone Screen Ur Barbiturates Screen Ur Phencyclidine Scrn Ur Amphetamine Screen U Benzodiazepines Scrn Urine Cocaine Screen U Cannabinoids Screen Ethyl Alcohol Impressions Chest X-Ray 03/10/25 21:46 IMPRESSION: Subsegmental left lower lung atelectasis/consolidation. EKG: Normal sinus rhythm rate 83 QTC 429 low-voltage QRS in precordial leads All imaging and EKGs personally reviewed and interpreted. And unless stated otherwise agree with radiologic and cardiology interpretation. Assessment and Plan Assessment and plan (1) Acute kidney injury: Code(s): N17.9 - Acute kidney failure, unspecified Status: Acute (2) Acute hyperkalemia: Code(s): E87.5 - Hyperkalemia Status: Acute (3) Dehydration with hyponatremia: Code(s): E86.0 - Dehydration; E87.1 - Hypo-osmolality and hyponatremia Status: Acute (4) Abnormal chest x-ray: Code(s): R93.89 - Abnormal findings on diagnostic imaging of other specified body structures Status: Acute (5) Transient hypotension: Code(s): I95.9 - Hypotension, unspecified Status: Acute (6) Hypoglycemia due to insulin: Code(s): E16.0 - Drug-induced hypoglycemia without coma; T38.3X5A - Adverse effect of insulin and oral hypoglycemic [antidiabetic] drugs, initial encounter Status: Acute (7) Heat effect: Qualifiers: Encounter type: initial encounter Qualified Code(s): T67.9XXA - Effect of heat and light, unspecified, initial encounter Code(s): T67.9XXA - Effect of heat and light, unspecified, initial encounter Status: Acute Plan Patient has acute kidney injury and acute hyperkalemia due to severe dehydration from heat exposure. Acute kidney injury is also likely exacerbated by hypotension due to hypovolemia and complicated by chronic TIA-inhibitor use. Patient received insulin Patient's blood pressures have normalized after IV fluid resuscitation. Will continue IV fluid hydration with LR at 150 mL an hour. Patient did have some hypoglycemia after receiving insulin therapy as part of treatment for hyperkalemia. Will place patient on D5 containing fluids for the short term and monitor Accu-Cheks closely for the next several hours.. Will monitor strict I&O's. Will repeat CBC and electrolyte panel in a.m.. Patient did have a mildly elevated CK level will check repeat CK level with a.m. labs. Will monitor on telemetry. Patient's chest x-ray demonstrates atelectasis versus pneumonia. Patient does have some mild leukocytosis but I suspect that this is more due to hypovolemia in less likely due to infection. Patient did have some transient shortness of breath but shortness of breath that seemed to be more due to hyperventilation from anxiety due to symptoms of hypotension and heat exposure in less likely due to pneumonia. Patient did receive empiric antibiotic therapy with Rocephin and azithromycin in the ER but this will not be continued. Will repeat CBC in a.m.. Will order home CPAP and will continue home Protonix. Patient has been admitted as observation status. MEDICAL DECISION MAKING NARRATIVE -Spoke with the ED provider in detail regarding patient's evaluation, workup and management -Patient seen and examined at bedside -Collaborated with patient's nurse at the bedside in detail and addressed all concerns -Labs, electrolytes, radiology, investigations and test results reviewed -ED/Consult/Nursing/Ancilliary notes on the chart reviewed and appreciated -Spoke with patient/family at the bedside plan was discussed and all questions were answered. Quality VTE Prophylaxis VTE prophylaxis: pharmacologic ordered (Lovenox 40 mg subQ daily.) Hospitalist MIPS Advance Care Plan I have confirmed that the patient's Advanced Care Plan is present, code status is documented, or surrogate decision maker is listed in patient medical record.: Yes Medication Reconciliation I have utilized all available resources to obtain, update and review the patients current medications (includes all prescriptions, OTC, herbals, cannabis, and nutritional supplements).: Yes
[2025-03-11] MEDS: AZITHROMYCIN IV 500 MG in SODIUM CHLORIDE 0.9% IV 250 ML IVPB (01:07)
--- NOTE | 2025-03-11 01:31 | ECG_ITS ---
Test Date: 2025-03-11 01:36:43 Measurements Intervals [place] Rate: 83 P: 57 WV: 151 QRS: 60 QRSD: 100 T: 56 QT: 364 QTc: 429 Interpretive Statements SINUS RHYTHM LOW QRS VOLTAGE IN PRECORDIAL LEADS BASELINE ARTIFACT- I, II, AVR BORDERLINE ECG No previous ECG available for comparison Electronically Signed On 03-11-2025 06:20:10 CDT by Giovanny Barney D.O.
[2025-03-11 01:35] LABS: CRP 1.0 mg/dL (<1.0)
[2025-03-11 01:43] LABS: Thyroid Stimulating Hormone Reflex 3.670 uIU/mL (0.465-4.68)
--- NOTE | 2025-03-11 01:47 | PC.NURSE ---
After RN got off the phone with floor nurse this RN went into pt room to get ready to take him up to the floor when he stated he felt nauseous and appeared diaphoretic. Pt was shaky and this RN checked his blood sugar and it read 52. This RN gave pt dextrose and OJ with cookies to elevate pt blood sugar at this time.
--- NOTE | 2025-03-11 02:03 | PC.NURSE ---
Tech rechecked pt blood sugar at this time and it was 149. Pt still appears shaky. FAMILY WELF[employer] SOCIAL WORK PROFESSOR Bettye notified and verbally states to monitor pt for another 10 minutes and recheck sugar then.
[2025-03-11 02:28] LABS: Vitamin B12 375.0 pg/mL (239-931)
[2025-03-11] MEDS: DEXTROSE 5%/LACTATED RINGERS 1,000 ML 150 ML IV CONT (02:40)
--- NOTE | 2025-03-11 02:59 | ADMGEN ---
This patient, Nahid Duran, was admitted to [facility] Surg Room 326-01. Patient/family oriented to hospital policies and general routines including ID bracelet, bed and alarms, visiting hours, pain management, procedures, bathroom and other care routines, personal items, smoking policy, room service/diet, and visiting hours. Information on how to activate the Rapid Response Team has been discussed. Patient/Family are encouraged to report perceived risks to care and to ask questions if they do not understand what they are told or what they should do.
[2025-03-11 06:23] LABS: Hematocrit 36.1 % (42.0-52.0); Hemoglobin 12.0 g/dL (14.0-18.0); Mean Corpuscular HGB Conc 33.2 g/dl (32-36); Mean Corpuscular Hemoglobin 30.2 pg (26-34); Mean Corpuscular Volume 90.9 fl (80-100); Platelet Count Result 260 k/mm3 (150-375); Red Blood Count 3.97 M/mm3 (4.6-6.20); White Blood Count 12.1 K/mm3 (4.5-10.0)
[2025-03-11 06:44] LABS: Anion Gap 5 mmol/L (4-12); Blood Urea Nitrogen 47 mg/dL (9-20); Calcium 8.2 mg/dL (8.4-10.2); Carbon Dioxide 22 mmol/L (22-30); Chloride 102 mmol/L (98-107); Estimated CRCL calculation 49 ml/min; Estimated Glomerular Filt Rate 34; Glucose 137 mg/dL (65-110); Potassium 5.1 mmol/L (3.4-5.0); Sodium 129 mmol/L (137-145)
[2025-03-11 07:34] LABS: Creatine Kinase 169 U/L (55-170)
[2025-03-11] MEDS: PANTOPRAZOLE 40 MG TABLET PO ×2 (09:50→21:11)
[2025-03-11] MEDS: ENOXAPARIN 40 MG/0.4 ML SYRINGE SUB-Q (09:50)
[2025-03-11] MEDS: CHLORHEXIDINE GLUCONATE 0.12% ORAL RINSE 473 ML BTL (*BKC) 15 ML SWISH/SPIT ×2 (09:50→21:10)
[2025-03-11] MEDS: CLINDAMYCIN HCL 150 MG CAP 300 MG PO ×4 (09:50→21:11)
[2025-03-11] MEDS: SODIUM CHLORIDE 0.9% IV 1,000 ML 150 ML IV CONT ×3 (09:51→21:10)
[2025-03-11 14:40] LABS: Anion Gap 4 mmol/L (4-12); Blood Urea Nitrogen 41 mg/dL (9-20); Calcium 8.6 mg/dL (8.4-10.2); Carbon Dioxide 24 mmol/L (22-30); Chloride 103 mmol/L (98-107); Estimated CRCL calculation 63 ml/min; Estimated Glomerular Filt Rate 46; Glucose 108 mg/dL (65-110); Potassium 4.8 mmol/L (3.4-5.0); Sodium 131 mmol/L (137-145)
[2025-03-12] VITALS (8 sets, daily range): BP systolic 134–138; BP diastolic 62–68; PULSE 64–89; RESP 17–20; TEMP 36.2–36.5; O2SAT 97–99
[2025-03-12] MEDS: SODIUM CHLORIDE 0.9% IV 1,000 ML 150 ML IV CONT ×2 (03:49→10:09)
[2025-03-12 06:21] LABS: Hematocrit 37.9 % (42.0-52.0); Hemoglobin 12.4 g/dL (14.0-18.0); Immature Granulocyte Percent A 0.4 % (0-0.5); Lymphocytes Absolute Auto 3.16 K/mm3 (0.9-3.2); Mean Corpuscular HGB Conc 32.7 g/dl (32-36); Mean Corpuscular Hemoglobin 30.1 pg (26-34); Mean Corpuscular Volume 92.0 fl (80-100); Nucleated Red Blood Cells Absolute Auto 0.000 K/mm3 (0.0-0.012); Nucleated Red Blood Cells Perc 0.0 % (0.0-0.2); Platelet Count Result 253 k/mm3 (150-375); Red Blood Count 4.12 M/mm3 (4.6-6.20); White Blood Count 7.8 K/mm3 (4.5-10.0)
[2025-03-12 06:49] LABS: Anion Gap 5 mmol/L (4-12); Blood Urea Nitrogen 30 mg/dL (9-20); Calcium 8.6 mg/dL (8.4-10.2); Carbon Dioxide 23 mmol/L (22-30); Chloride 107 mmol/L (98-107); Estimated CRCL calculation 85 ml/min; Estimated Glomerular Filt Rate > 60; Glucose 93 mg/dL (65-110); Magnesium 2.1 mg/dL (1.6-2.3); Potassium 5.3 mmol/L (3.4-5.0); Sodium 135 mmol/L (137-145)
[2025-03-12] MEDS: CHLORHEXIDINE GLUCONATE 0.12% ORAL RINSE 473 ML BTL (*BKC) 15 ML SWISH/SPIT (10:10)
[2025-03-12] MEDS: ENOXAPARIN 40 MG/0.4 ML SYRINGE SUB-Q (10:10)
[2025-03-12] MEDS: PANTOPRAZOLE 40 MG TABLET PO (10:10)
[2025-03-12] MEDS: CLINDAMYCIN HCL 150 MG CAP 300 MG PO ×2 (10:10→12:51)
[2025-03-12] MEDS: FUROSEMIDE INJ 40 MG/4 ML VIAL 20 MG IV PUSH (10:56)
[2025-03-12] MEDS: SODIUM ZIRCONIUM CYCLOSILICATE 10 GM POWD.PACK PO (10:56)
[2025-03-12 13:44] LABS: Anion Gap 7 mmol/L (4-12); Blood Urea Nitrogen 24 mg/dL (9-20); Calcium 9.1 mg/dL (8.4-10.2); Carbon Dioxide 23 mmol/L (22-30); Chloride 105 mmol/L (98-107); Estimated CRCL calculation 80 ml/min; Estimated Glomerular Filt Rate > 60; Glucose 123 mg/dL (65-110); Magnesium 1.9 mg/dL (1.6-2.3); Potassium 4.9 mmol/L (3.4-5.0); Sodium 135 mmol/L (137-145)
--- NOTE | 2025-03-12 14:59 | PM.DS ---
DS: Admitting Diagnosis Discharge Date 03/12/2025 Admitting Diagnosis Heat exhaustion DS: Discharge Diagnosis Discharge Diagnosis (1) Chronic anxiety: Code(s): F41.9 - Anxiety disorder, unspecified Status: Acute (2) Hypertension: Qualifiers: Hypertension type: primary hypertension Qualified Code(s): I10 - Essential (primary) hypertension Code(s): I10 - Essential (primary) hypertension Status: Acute (3) Transient hypotension: Code(s): I95.9 - Hypotension, unspecified Status: Acute (4) Hypoglycemia due to insulin: Code(s): E16.0 - Drug-induced hypoglycemia without coma; T38.3X5A - Adverse effect of insulin and oral hypoglycemic [antidiabetic] drugs, initial encounter Status: Acute (5) Acute hyperkalemia: Code(s): E87.5 - Hyperkalemia Status: Acute (6) Acute kidney injury: Code(s): N17.9 - Acute kidney failure, unspecified Status: Acute (7) Excessive sweating: Code(s): R61 - Generalized hyperhidrosis Status: Acute (8) Heat intolerance: Code(s): R68.89 - Other general symptoms and signs Status: Acute DS: Summary Hospital Course Hospital Course: 49-year-old male with history of obesity, CHEIKH compliant with CPAP, narcolepsy, hypertension, GERD, chronic anxiety admitted to [facility] on 03/11/2025 with the effects of heat exhaustion. This is the 2nd admission he has had when he was working outside excessively without ample rest. He had an acute kidney injury which resolved with large volume fluid resuscitation, acute hyperkalemia which resolved. He had transient hypotension, resolved. He had hypoglycemia due to insulin related to hyperkalemia treatment which resolved. Discussed with the patient about proper limitation of exertion. We talked about the possibility of chronic kidney disease due to multiple episodes of heat exhaustion. Discussed this with his at bedside as well as the patient has anxiety and will often go against the recommended plan. He is discharged in stable condition to home on 03/12/2025. His blood pressure is at goal and with recent kidney injury we will be holding his losartan until he follows up with PCP. Time Spent with Patient Time attestation: Total time spent providing and/or coordinating discharge services: Exam Const: General: comfortable and no acute distress Other: A&O x3 HENMT: Mouth: Yes moist mucous membranes Eyes: Pupils: Equal, round and reactive pupils present Neck: Neck: supple Resp: Effort & Inspection: normal respiratory effort Auscultation: clear to auscultation bilaterally Cardio: Rate: regular rate Rhythm: regular rhythm Heart sounds: no gallops, no murmurs and no rubs GI: Inspection: non-distended GI Palp: Yes Soft to palpation Neuro: Motor exam (neuro): 5/5 motor strength present throughout Extrem: General: no edema DS: Data Data Completed and Pending Labs on day of discharge: Labs from last 24 hours 03/12/25 03/12/25 03/12/25 13:12 11:24 07:21 WBC RBC Hgb Hct MCV MCH MCHC RDW Plt Count MPV Immature Gran % (Auto) Neut % (Auto) Lymph % (Auto) [place] % (Auto) Eos % (Auto) Baso % (Auto) Lymph # (Auto) [place] # (Auto) Eos # (Auto) Baso # (Auto) Abs Immat Gran (auto) Absolute Neuts (auto) Absolute Nucleated RBC Nucleated RBC % Sodium 135 L Potassium 4.9 Chloride 105 Carbon Dioxide 23 Anion Gap 7 BUN 24 H Creatinine 1.26 Estim Creat Clear Calc 80 Estimated GFR > 60 Glucose 123 H POC Capillary Glucose 115 H 96 Calcium 9.1 Magnesium 1.9 03/12/25 03/11/25 03/11/25 06:08 20:16 16:29 WBC 7.8 RBC 4.12 L Hgb 12.4 L Hct 37.9 L MCV 92.0 MCH 30.1 MCHC 32.7 RDW 13.1 Plt Count 253 MPV 8.9 Immature Gran % (Auto) 0.4 Neut % (Auto) 41.8 L Lymph % (Auto) 40.5 [place] % (Auto) 9.2 H Eos % (Auto) 7.8 H Baso % (Auto) 0.3 Lymph # (Auto) 3.16 [place] # (Auto) 0.7 H Eos # (Auto) 0.6 H Baso # (Auto) 0.0 Abs Immat Gran (auto) 0.03 Absolute Neuts (auto) 3.3 Absolute Nucleated RBC 0.000 Nucleated RBC % 0.0 Sodium 135 L Potassium 5.3 H Chloride 107 Carbon Dioxide 23 Anion Gap 5 BUN 30 H D Creatinine 1.18 Estim Creat Clear Calc 85 Estimated GFR > 60 Glucose 93 POC Capillary Glucose 114 H 123 H Calcium 8.6 Magnesium 2.1 Discharge Plan Discharge Attending physician on discharge: Jennifer Vences Discharging Clinician: Jennifer Vences Patient Disposition: Home Activity: may shower Diet: as tolerated Discharge Instructions: As discussed, limit physical activity to short periods of time with adequate amount of rest in between and adequate hydration. Patient Instructions: Antibiotic Form Patient Language: [place] Stand Alone Forms: General Discharge Information Follow-up/Referrals: Mohan Camejo MD [Primary Care Provider] - Discharge Medications: Continued chlorhexidine gluconate 0.12 % mouthwash 15 ml PO BID clindamycin HCl 300 mg capsule 300 mg PO QID omeprazole 40 mg capsule,delayed release(DR/EC) 40 mg PO DAILY Qty: 90 3RF armodafinil 150 mg tablet 150 mg PO QAM Qty: 90 1RF indomethacin 75 mg capsule, extended release 75 mg PO BID PRN (Reason: pain) Qty: 60 11RF Changed epinephrine [EpiPen 2-Jan] 0.3 mg/0.3 mL auto-injector 0.3 mg IM ONCE PRN (Reason: anaphylaxis) Qty: 2 3RF Rx Instructions: as a single dose; may repeat once Held lisinopril 40 mg tablet 40 mg PO DAILY Qty: 90 3RF Hold Instructions: Must have follow-up with PCP and kidney checked before use of this medication Date of admission: 03/11/25 00:57 Primary Care Provider: Mohan Camejo Admitting Provider: Anabela Sy Attending physician on admission: Anabela Sy Condition: Stable Hospitalist MIPS Heart Failure (Exclusion) Patient has history of Heart Transplant or Left Ventricular Assistive Device?: No IF YES, STOP HERE Heart Failure (Qualifier) Patient has current or prior documentation of LVEF less than or equal to 40%, or mod/servere depressed LVSF?: No IF NO, STOP HERE
== END 2025-03-12 16:25 | disposition home or self-care (01) ==
LOC: ANHED 03-11 01:09 → ANH3MEDSUR 03-12 14:38
PROVIDERS: Student in an Organized Health Care Education/Training Program; Admitting Provider Internal Medicine; Emergency Provider Registered Nurse; PCP Family Medicine; Visit Provider General Practice
DX: E16.0 Drug-induced hypoglycemia without coma (principal); T38.3X5A Adverse effect of insulin and oral hypoglycemic [antidiabetic] drugs, initial encounter; T67.9XXA Effect of heat and light, unspecified, initial encounter; E87.5 Hyperkalemia; E86.0 Dehydration; N17.9 Acute kidney failure, unspecified; E87.1 Hypo-osmolality and hyponatremia; I95.9 Hypotension, unspecified; R61 Generalized hyperhidrosis; I10 Essential (primary) hypertension; K21.9 Gastro-esophageal reflux disease without esophagitis; L30.1 Dyshidrosis [pompholyx]; Z86.718 Personal history of other venous thrombosis and embolism; G47.33 Obstructive sleep apnea (adult) (pediatric); Z99.89 Dependence on other enabling machines and devices; F17.210 Nicotine dependence, cigarettes, uncomplicated; F41.8 Other specified anxiety disorders; G47.419 Narcolepsy without cataplexy
CPT/HCPCS: 36415; 71046; 80048; 80053; 80307; 81003; 82077; 82550; 82607; 82746; 82948; 83605; 83735; 84443; 85025; 85027; 86140; 87040; 93005; 94002; 96361; 96365; 96367; 96372; 96375; 99285; A4248; A9270; G0378; J0456; J0612; J0696; J1650; J1815; J1938; J7030; J7050; J7121